=== PATIENT | female | born 1940 | race Caucasian/White ===

== ENCOUNTER 2016-11-12 11:09 | Outpatient (RCR) | payer MEDICARE, BC ==
[~2016-11-12] VITALS: Ht 170.2 cm; Wt 70.3 kg
[~2016-11-12 11:09] MED LIST: AC325T PO; ALPR.25T PO; ALPR.5T PO; ASP81TEC PO; ATR20T PO; CALC-20 PO; CARV12.52 PO; CEFU250T11 PO; DABI150C2 PO; DILT240C PO; DILT360C26 PO; ERGO400C PO; LORA10CA PO; MAGN400C PO; MULT1CAP27 PO; NITR-65 PO; OMEG-59 PO; ONDA-42 SL; OXYC-12 PO; PNT40TEC PO; PRX20T PO
== END 2017-02-10 | disposition home or self-care (01) ==
LOC: DSME 11:09
PROVIDERS: ATTEND Internal Medicine
DX: E11.65 Type 2 diabetes mellitus with hyperglycemia (principal); I10 Essential (primary) hypertension

== ENCOUNTER → 2016-11-15 | Outpatient (CLI) | payer MEDICARE, BC ==
--- NOTE | 2016-11-20 08:27 | ECHOCARDIOGRAPHY REPORT ---
PROCEDURE PHYSICIAN: SAIRA BUSTOS DATE OF PROCEDURE: 11/15/2016 TWO DIMENSIONAL ECHOCARDIOGRAM REPORT PRIMARY PHYSICIAN: Dr. Berger OTHER PHYSICIAN: Dr. Bustos REFERRING PHYSICIAN: ORDERING PHYSICIAN: Donna Art APRN INDICATION FOR THE PROCEDURE: 1. Coronary artery disease. 2. Hypertension. 3. Tricuspid regurgitation. MEASUREMENTS DERIVED VALUES LV DIAMETER (LAX) NORMALS NORMALS Diastolic 4.7 (3.6-5.2) Eject. Fract. (60%+/-6%) Systolic (2.3-3.9) Diastolic Vol. % Shortening (0.22-0.42) Systolic Vol. Aortic Root 3.5 IVS THICKNESS Diastolic 1.1 (0.6-1.1) LVPW THICKNESS Diastolic 0.8 (0.6-1.1) LA DIAMETER Systolic 4.1 (2.1-3.7) DESCRIPTION: Two-dimensional echocardiography shows normal global left ventricular systolic function with regional wall motion. Aortic, mitral and tricuspid valve leaflets show good leaflet excursion. There is no significant pericardial effusion. Doppler imaging shows trivial to mild mitral, tricuspid and aortic regurgitation. Aortic valve appears to be trileaflet. Pulmonary artery systolic pressure is estimated to be approximately 30 mmHg. There is no Doppler evidence of any significant valvular stenosis. There is no evidence of any significant intracardiac shunt on this transthoracic echocardiographic study. Inferior vena cava appears to be of normal size and exhibits inspiratory collapse. Echodense structures within the right heart are consistent with pacemaker lead/leads. CONCLUSIONS: 1. Normal global left ventricular systolic function with an ejection fraction of approximately 60%. 2. Trivial to mild mitral, tricuspid and aortic regurgitation. 3. No evidence of any significant valvular stenosis. 4. Pulmonary artery systolic pressure is estimated to be approximately 30 mmHg. Job ID: [id number] Dictated Date: 11/19/2016 15:12:30 Printing Technician Date: 11/20/2016 08:21:11 / iveth
== END ==
LOC: CARD 09:33
PROVIDERS: ATTEND Nurse Practitioner Family
DX: I25.10 Atherosclerotic heart disease of native coronary artery without angina pectoris (principal); I10 Essential (primary) hypertension; E78.4 Other hyperlipidemia; I36.1 Nonrheumatic tricuspid (valve) insufficiency
CPT/HCPCS: 93306

== ENCOUNTER → 2017-05-12 | Outpatient (CLI) | payer MEDICARE, BC ==
--- NOTE | 2017-05-12 18:03 | Diagnostic Imaging Report ---
INDICATION: Screening mammogram. COMPARISON: 05/03/16 Digital screening mammography was obtained with CAD and three-dimensional tomosynthesis. The current study was also evaluated with a Computer Aided Detection (CAD) system. FINDINGS: Scattered fibroglandular densities are present. There is no mass or suspicious calcification. IMPRESSION: Stable screening mammogram. No malignancy. ACR BI-RADS Category 1: Negative. Result letter will be mailed to the patient. Note: At least 10% of breast cancer is not imaged by mammography. Dictated on workstation # [id number]
== END ==
LOC: RAD 12:51
PROVIDERS: ATTEND Nurse Practitioner
DX: Z12.31 Encounter for screening mammogram for malignant neoplasm of breast (principal)
CPT/HCPCS: 77067

== ENCOUNTER → 2017-09-24 | Outpatient (CLI) | payer MEDICARE, BC ==
--- NOTE | 2017-09-24 11:11 | Diagnostic Imaging Report ---
INDICATION: Back pain. TECHNIQUE: Three views of the lumbar spine were obtained. FINDINGS: There is slight anterolisthesis of L4 on L5 which appears to be on a degenerative basis. The vertebral body heights are well-maintained. There is some lower lumbar hypertrophic degenerative facet disease. There is no fracture or traumatic subluxation. IMPRESSION: Lower lumbar hypertrophic degenerative facet disease with some slight anterolisthesis of L4 on L5. Dictated by: Dictated on workstation # [id number]
--- NOTE | 2017-09-24 11:11 | Diagnostic Imaging Report ---
INDICATION: Back pain. FINDINGS: The sacroiliac joints are unremarkable. There is no sclerosis or lysis. There is no fracture. IMPRESSION: Unremarkable bilateral SI joints. Dictated by: Dictated on workstation # [id number]
== END ==
LOC: RAD 10:37
PROVIDERS: ATTEND Internal Medicine
DX: M47.816 Spondylosis without myelopathy or radiculopathy, lumbar region (principal)
CPT/HCPCS: 72100; 72202

== ENCOUNTER → 2018-01-01 | Outpatient (CLI) | payer MEDICARE, BC ==
[~2018-01-01] MED LIST changes: +CATHETER FLUSH 10 ML SYR IV PRN; +REGADENOSON 0.4 MG/5 ML SYR (LEXISCAN) IV ONE
[2018-01-01 08:49] VITALS: BP 123/74
[2018-01-01 08:54] VITALS: BP 130/79
--- NOTE | 2018-01-01 14:05 | STRESS TEST ---
DATE OF SERVICE: 01/01/2018 RESTING AND POST REGADENOSON TECHNETIUM-99M TETROFOSMIN SPECT CT IMAGING ORDERING PHYSICIAN: Anel Bustos MD PRIMARY CARE PHYSICIAN: Dr. Berger. CLINICAL DIAGNOSIS: Coronary artery disease. Baseline images were carried out after injection of 10.74 mCi of technetium-99m tetrofosmin. This was followed by 0.4 mg of regadenoson and 30.5 mCi of technetium-99m tetrofosmin for stress imaging. The electrocardiogram showed atrial fibrillation throughout the study. Ventricular rate was well controlled. Occasional isolated premature ventricular contractions were seen. There was nonspecific ST and T-wave abnormality throughout the study. The patient had mild nonspecific discomfort following regadenoson infusion, which resolved in a few minutes. Review of images at rest and following stress does not indicate any significant perfusion defects consistent with significant myocardial ischemia or infarction. Gated images show normal global left ventricular systolic function with normal regional wall motion. Left ventricular ejection fraction is calculated to be 61%. Left ventricular end diastolic volume is 77 mL. TID is absent (0.97). CONCLUSIONS: 1. No evidence of significant myocardial ischemia or infarction on this study. 2. Normal regional wall motion. 3. Normal global left ventricular systolic function with a calculated ejection fraction of 61%. Job ID: [id number] DocumentID: [id number] Dictated Date: 01/01/2018 11:24:27 Can Line Examiner Date: 01/01/2018 14:04:45 Dictated By: ANEL BUSTOS MD, MA, FACP, FACC,
== END ==
LOC: CARD 07:15
PROVIDERS: ATTEND Internal Medicine Cardiovascular Disease
DX: I25.10 Atherosclerotic heart disease of native coronary artery without angina pectoris (principal); I10 Essential (primary) hypertension; E78.4 Other hyperlipidemia; R73.01 Impaired fasting glucose; R25.8 Other abnormal involuntary movements; I49.5 Sick sinus syndrome; Z95.0 Presence of cardiac pacemaker
CPT/HCPCS: 78452; 93017

== ENCOUNTER → 2018-03-02 | Outpatient (CLI) | payer MEDICARE, BC ==
[~2018-03-02] MED LIST changes: -CATHETER FLUSH 10 ML SYR IV PRN; -REGADENOSON 0.4 MG/5 ML SYR (LEXISCAN) IV ONE
--- NOTE | 2018-03-02 16:14 | Diagnostic Imaging Report ---
INDICATION: Right wrist pain. FINDINGS: Three views of the right wrist show no fracture, dislocation, or other acute abnormality. IMPRESSION: Negative right wrist. Dictated by: Dictated on workstation # [id number]
== END ==
LOC: RAD 15:48
PROVIDERS: ATTEND Internal Medicine
DX: M25.531 Pain in right wrist (principal)
CPT/HCPCS: 73110

== ENCOUNTER → 2018-09-16 | Outpatient (CLI) | payer MEDICARE, BC ==
--- NOTE | 2018-09-16 15:58 | Diagnostic Imaging Report ---
INDICATION: Cough and congestion. Difficulty breathing. COMPARISON: 11/15/2013. FINDINGS: Frontal and lateral radiographic views of the chest were obtained and show normal cardiac silhouette and pulmonary vasculature. Left-sided single lead pacemaker is noted. Evaluation of the lung tierney suggests 3.4 x 2.2 cm mass-like opacity projecting over the left heart border in the left lower lung. Right lung is clear. There is no large effusion or pneumothorax on either side. Cardiac silhouette and pulmonary vasculature are within normal limits. IMPRESSION: 1. Mass-like opacity projecting over the left lower lung field. Correlation with CT chest is recommended. Dictated by: Dictated on workstation # [id number]
== END ==
LOC: RAD 15:19
PROVIDERS: ATTEND Physician Assistant
DX: J40 Bronchitis, not specified as acute or chronic (principal)
CPT/HCPCS: 71046

== ENCOUNTER → 2018-09-18 | Outpatient (CLI) | payer MEDICARE, BC ==
[~2018-09-18] MED LIST changes: +IOHEXOL 350 MG/ML 100 ML (OMNIPAQUE 350) VIAL IV ONE; +NS 100 ML (IVPB) BAG IV ONE; +RECEIVED CONTRAST (Hold Metformin) IV SCH
[2018-09-18 10:59] LABS: BUN/CREATININE RATIO 19; CALCIUM 10.1 MG/DL (8.5-10.1); CARBON DIOXIDE 26 MMOL/L (21-32); CHLORIDE 103 MMOL/L (98-107); CREATININE SERUM 0.84 MG/DL (0.60-1.30); GFR ESTIMATED > 60; GLUCOSE 105 MG/DL (70-105); POTASSIUM 3.8 MMOL/L (3.6-5.0); SODIUM 140 MMOL/L (135-145)
--- NOTE | 2018-09-18 11:43 | Diagnostic Imaging Report ---
PROCEDURE: CT chest with contrast only. TECHNIQUE: Multiple contiguous axial images were obtained through the chest after administration of intravenous contrast. INDICATION: Cough and recent pneumonia. Patient had recent abnormal chest radiograph demonstrating a possible mass in the left base. Study is performed for further evaluation. COMPARISON: Correlation is made with chest radiograph from 09/16/2018. FINDINGS: Left chest wall cardiac pacemaker is in place. No axillary lymphadenopathy is seen. There are several mildly prominent lymph nodes in the mediastinum, nonspecific. Precarinal node measures 1.6 x 1.3 cm. There are some prominent nodes in the AP window. A conglomerate of nodes measures approximately 2.7 x 1.8 cm. No hilar lymphadenopathy is seen. No pericardial or pleural fluid is identified. Parenchymal evaluation does show central airways to be patent. There is some atelectasis in the lingula which may account for a portion of the density noted on recent chest x-ray. No mass lesion is identified. The remainder of the lung tierney are clear apart from some micronodules in the right middle lobe measuring approximately 3-4 mm. There is calcified granuloma in the right middle lobe as well. Tiny subpleural micronodule right lower lobe measures 4 mm. Micronodule left lower lobe posteriorly subpleural location measures 3 mm. Upper abdomen is unremarkable. IMPRESSION: 1. No evidence of a discrete mass to account for the density noted on chest x-ray. There is some mild subsegmental atelectasis in the lingula, likely accounting for the chest x-ray density. There are several micronodules present bilaterally, nonspecific approximately 3-4 mm in size. In addition, there appears to be some prominent lymph nodes in the mediastinum, indeterminate. These could potentially be reactive but other etiologies cannot be entirely excluded. Followup CT chest in 4-6 months recommended to confirm stability. Dictated by: Dictated on workstation # [id number]
== END ==
LOC: RAD 10:35
PROVIDERS: ATTEND Physician Assistant
DX: J98.4 Other disorders of lung (principal); R91.8 Other nonspecific abnormal finding of lung field; J18.9 Pneumonia, unspecified organism; J98.11 Atelectasis
CPT/HCPCS: 36415; 71260; 80048

== ENCOUNTER → 2019-05-17 | Outpatient (CLI) | payer MEDICARE, BC ==
[~2019-05-17] MED LIST changes: -IOHEXOL 350 MG/ML 100 ML (OMNIPAQUE 350) VIAL IV ONE; -NS 100 ML (IVPB) BAG IV ONE; -RECEIVED CONTRAST (Hold Metformin) IV SCH
--- NOTE | 2019-05-17 22:24 | Diagnostic Imaging Report ---
INDICATION: Screening. The current study was also evaluated with a Computer Aided Detection (CAD) system. 3-D Tomographic imaging was also performed. Comparison is made with prior examination 05/14/2018, 05/12/2017 and 05/03/2016. FINDINGS: The fibroglandular tissue is heterogeneously dense bilaterally. There are benign-type calcifications and vascular calcifications. There is no dominant mass, spiculated lesion or suspicious calcification identified. Skin, nipples and axillae are unremarkable. IMPRESSION: ACR BI-RADS Category 2: Benign findings. Result letter will be mailed to the patient. Note: At least 10% of breast cancer is not imaged by mammography. Dictated by: Dictated on workstation # [id number]
== END ==
LOC: RAD 10:19
PROVIDERS: ATTEND Physician Assistant
DX: Z12.31 Encounter for screening mammogram for malignant neoplasm of breast (principal)
CPT/HCPCS: 77067

== ENCOUNTER 2019-06-28 12:59 | Outpatient (CLI) | payer MEDICARE, BC | END 2019-06-28 13:58 | disposition home or self-care (01) | LOC: SLEEP 12:59 | PROVIDERS: ATTEND Nurse Practitioner | DX: G47.33 Obstructive sleep apnea (adult) (pediatric) (principal) ==

== ENCOUNTER → 2020-04-27 | Outpatient (CLI) | payer MEDICARE, BC ==
[~2020-04-27] MED LIST changes: +CATHETER FLUSH 10 ML SYR IV PRN; +HOLD METFORMIN - RECEIVED CONTRAST 20 ML VIAL IV SCH; +IOHEXOL 350 MG/ML 100 ML (OMNIPAQUE 350) VIAL IV ONE; +NS 100 ML (IVPB) BAG IV ONE
[2020-04-27 13:20] LABS: BUN/CREATININE RATIO 24; CALCIUM 9.9 MG/DL (8.5-10.1); CARBON DIOXIDE 24 MMOL/L (21-32); CHLORIDE 103 MMOL/L (98-107); CREATININE SERUM 0.88 MG/DL (0.60-1.30); GFR ESTIMATED > 60; GLUCOSE 99 MG/DL (70-105); POTASSIUM 4.1 MMOL/L (3.6-5.0); SODIUM 140 MMOL/L (135-145)
--- NOTE | 2020-04-27 15:57 | Diagnostic Imaging Report ---
EXAMINATION: CT angiography of the chest. TECHNIQUE: Contrast enhanced thin section helical images were obtained through the chest with intravenous contrast timed for the optimal opacification of the arterial structures per CTA protocol. Post-processing, reconstructions and interpretation of angiographic images of the vessels was performed. 3D MIP reconstructions were performed and reviewed. All CT scans use one or more of the following dose optimizing techniques: automated exposure control, MA and/or KvP adjustment based on a patient size and exam type, or iterative reconstruction. HISTORY: Aortic aneurysm COMPARISON: 09/18/2018 FINDINGS: The aortic root measures 4.5 x 4.2 cm. The sinotubular junction measures 2.9 cm. The ascending aorta measures 3.9 cm in its maximal dimension. Both ventricles are dilated but the right atrium and ventricle are fairly severely dilated. Pulmonary artery is dilated. Pacemaker is present. No axillary, supraclavicular lymphadenopathy is present. Mildly enlarged mediastinal lymph nodes are stable from prior exam. Lungs are clear without edema or pneumonia. No pleural effusion or pneumothorax. Limited views of the upper abdomen show pneumobilia and renal cysts. No suspicious osseus lesions are seen. IMPRESSION: 1. Dilated aorta measuring up to 4.5 cm in the root. The aorta above the sinotubular junction is not dilated. 2. Markedly dilated right atrium and right ventricle with mildly dilated left atrium and left ventricle. Dictated by: Dictated on workstation # [id number]
== END ==
LOC: RAD 12:24
PROVIDERS: ATTEND Nurse Practitioner Family
DX: I71.2 Thoracic aortic aneurysm, without rupture (principal)
CPT/HCPCS: 36415; 71275; 80048

== ENCOUNTER 2020-05-11 22:50 | Emergency (ER) | payer MEDICARE, BC ==
[~2020-05-11] VITALS: Ht 170 cm; Wt 68.3 kg
[~2020-05-11 22:50] MED LIST changes: -CATHETER FLUSH 10 ML SYR IV PRN; -HOLD METFORMIN - RECEIVED CONTRAST 20 ML VIAL IV SCH; -IOHEXOL 350 MG/ML 100 ML (OMNIPAQUE 350) VIAL IV ONE; -NS 100 ML (IVPB) BAG IV ONE
[2020-05-11] MEDS ORDERED: FURO40TA4 (23:13)
[2020-05-11] MEDS ORDERED: DIGO250T3 (23:13)
[2020-05-11] MEDS ORDERED: DABI150C5 (23:13)
[2020-05-11] MEDS ORDERED: ESCI20TA45 (23:13)
[2020-05-11] MEDS ORDERED: FAMOTIDINE 20MG/2ML IV (PEPCID) IVP ONE (23:15)
[2020-05-11] MEDS ORDERED: ONDANSETRON 4 MG/2 ML (SDV) Z0FRAN IVP ONE (23:15)
[2020-05-11 23:32] LABS: COLOR,URINE YELLOW
[2020-05-11 23:33] LABS: BASOPHILS % (AUTO) 0 % (0-10); EOSINOPHILS % (AUTO) 1 % (0-10); HEMATOCRIT 42 % (35-52); HEMOGLOBIN 13.8 G/DL (11.5-16.0); LYMPHOCYTES # (AUTO) 2.4 X 10^3 (1.0-4.0); LYMPHOCYTES % (AUTO) 28 % (12-44); MEAN CORPUSCULAR HEMOGLOBIN 30 PG (25-34); MEAN CORPUSCULAR HGB CONC 33 G/DL (32-36); MEAN CORPUSCULAR VOLUME 90 FL (80-99); MEAN PLATELET VOLUME 9.5 FL (7.4-10.4); MONOCYTES # (AUTO) 0.5 X 10^3 (0.0-1.0); MONOCYTES % (AUTO) 6 % (0-12); NEUTROPHILS # (AUTO) 5.7 X 10^3 (1.8-7.8); NEUTROPHILS % (AUTO) 66 % (42-75); PLATELET COUNT 214 10^3/uL (130-400); WHITE BLOOD COUNT 8.7 10^3/uL (4.3-11.0)
[2020-05-11 23:33] LABS: BILIRUBIN,URINE NEGATIVE (NEGATIVE); CLARITY,URINE CLEAR; GLUCOSE, URINE (UA) NEGATIVE (NEGATIVE); KETONES,URINE NEGATIVE (NEGATIVE); LEUKOCYTE ESTERASE ,URINE 2+ (NEGATIVE); NITRITE,URINE NEGATIVE (NEGATIVE); PH,URINE 6.5 (5-9); PROTEIN,URINE NEGATIVE (NEGATIVE)
[2020-05-11 23:34] LABS: BACTERIA,URINE TRACE /HPF; SQUAMOUS EPITHELIAL CELL,UR 0-2 /HPF
[2020-05-11 23:55] LABS: ALANINE AMINOTRANSFERASE 45 U/L (0-55); ALBUMIN 4.5 GM/DL (3.2-4.5); ALKALINE PHOSPHATASE 68 U/L (40-136); BILIRUBIN,TOTAL 0.4 MG/DL (0.1-1.0); BUN/CREATININE RATIO 17; CALCIUM 9.9 MG/DL (8.5-10.1); CARBON DIOXIDE 27 MMOL/L (21-32); CHLORIDE 102 MMOL/L (98-107); CREATININE SERUM 0.89 MG/DL (0.60-1.30); GFR ESTIMATED > 60; GLUCOSE 87 MG/DL (70-105); LIPASE 20 U/L (8-78); MAGNESIUM 2.1 MG/DL (1.6-2.4); POTASSIUM 3.5 MMOL/L (3.6-5.0); SODIUM 140 MMOL/L (135-145); TOTAL PROTEIN 7.9 GM/DL (6.4-8.2)
--- NOTE | 2020-05-11 23:55 | ED Cardiac General ---
History of Present Illness General Chief Complaint: Cardiac/General Problems Stated Complaint: AFIB N/V Nursing Triage Note: C/O IRREGULAR HR SINCE APPROX. 2129. ALSO REPORTS UPPER ABDOMINAL PAIN/NAUSEA SINCE 2129. REPORTS HX AFIB. Source: patient Exam Limitations: no limitations History of Present Illness Date Seen by Provider: May 11, 2020 Time Seen by Provider: 23:05 Initial Comments This 80-year-old woman with history of paroxysmal atrial fibrillation presents to the emergency room with complaints about irregular heart rhythm that she noticed between 21:00 and 22:00. She denies any chest pain. She has had some upper abdominal tenderness and pain and nausea and vomiting. She denies any cough, fever, or COVID exposures. She is noted to be in atrial fibrillation on the monitor. She has a pacemaker and is on multiple medications including diltiazem and digoxin. She is anticoagulated with Pradaxa. Allergies and Home Medications Allergies Coded Allergies: No Known Drug Allergies (Unverified , 08/03/12) Home Medications Alprazolam 0.25 Mg Tablet, 0.25 MG PO DAILY, (Reported) Alprazolam 0.5 Mg Tablet, 0.25 MG PO HS, (Reported) Atorvastatin 20 Mg Tablet, 1 EACH PO DAILY, (Reported) Calcium Carbonate/Vitamin D3 1 Each Tablet, 1 EACH PO BID, (Reported) Cholecalciferol 400 Unit Capsule, 1,000 UNIT PO DAILY, (Reported) Diltiazem Hcl 360 Mg Cap.sr.24h, 1 EACH PO BID, (Reported) Loratadine 10 Mg Capsule, 10 MG PO DAILY, (Reported) Magnesium Oxide 400 Mg Capsule, 400 MG PO DAILY, (Reported) Multivitamins 1 Each Capsule, 1 EACH PO DAILY, (Reported) Frost-3 Fatty Acids/Fish Oil 1 Each Capsule, 1,400 MG PO DAILY, (Reported) Pantoprazole Sodium 40 Mg Tablet.dr, 40 MG PO DAILY, (Reported) Paroxetine Hcl 20 Mg Tablet, 20 MG PO DAILY, (Reported) Patient Home Medication List Home Medication List Reviewed: Yes Review of Systems Review of Systems Constitutional: no symptoms reported EENTM: No Symptoms Reported Respiratory: No Symptoms Reported Cardiovascular: See HPI Gastrointestinal: See HPI Genitourinary: No Symptoms Reported Musculoskeletal: no symptoms reported Skin: no symptoms reported Psychiatric/Neurological: No Symptoms Reported Endocrine: No Symptoms Reported Hematologic/Lymphatic: No Symptoms Reported Past Jwdvrcg-[id number]-Kwgmsv Hx Past Med/Social Hx: Reviewed Nursing Past Med/Soc Hx Patient Social History Alcohol Use: Denies Use Recreational Drug Use: No Smoking Status: Never a Smoker 2nd Hand Smoke Exposure: No Recent Foreign Travel: No Contact w/Someone Who Travel: No Recent Infectious Disease Expo: No Recent Hopitalizations: No Physical Abuse: No Sexual Abuse: No Mistreated: No Fear: No Immunizations Up To Date Tetanus Booster (TDap): Unknown Date of Pneumonia Vaccine: Jun 22, 2011 Date of Influenza Vaccine: Aug 22, 2013 Seasonal Allergies Seasonal Allergies: No Past Medical History Surgeries: Yes (Total hysterectomy, appy, charan, ) Pacemaker Respiratory: No Cardiac: Yes (PACEMAKER) Atrial Fibrillation, High Cholesterol, Hypertension Neurological: No : No 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 oz. 72.919305oz; 23.00 BMI Method:Stated General Appearance: No Apparent Distress, WD/WN HEENT: PERRL/EOMI, Normal ENT Inspection Neck: Normal Inspection Respiratory: Chest Non Tender, Lungs Clear, Normal Breath Sounds, No Accessory Muscle Use, No Respiratory Distress Cardiovascular: Regular Rate, Rhythm, No Edema, No Gallop, No Murmur, Normal Peripheral Pulses Gastrointestinal: Normal Bowel Sounds, Soft, Tenderness (mild tenderness in the left upper quadrant) Extremity: Normal Inspection, Non Tender, No Calf Tenderness Neurologic/Psychiatric: Alert, Oriented x3, No Motor/Sensory Deficits, Normal Mood/Affect Skin: Normal Color, Warm/Dry Progress/Results/Core Measures Results/Orders Lab Results Laboratory Tests Test 05/11/20 23:12 05/11/20 23:15 Range/Units White Blood Count 8.7 4.3-11.0 10^3/uL Red Blood Count 4.68 4.35-5.85 10^6/uL Hemoglobin 13.8 11.5-16.0 G/DL Hematocrit 42 35-52 % Mean Corpuscular Volume 90 80-99 FL Mean Corpuscular Hemoglobin 30 25-34 PG Mean Corpuscular Hemoglobin Concent 33 32-36 G/DL Red Cell Distribution Width 15.0 H 10.0-14.5 % Platelet Count 214 130-400 10^3/uL Mean Platelet Volume 9.5 7.4-10.4 FL Neutrophils (%) (Auto) 66 42-75 % Lymphocytes (%) (Auto) 28 12-44 % Monocytes (%) (Auto) 6 0-12 % Eosinophils (%) (Auto) 1 0-10 % Basophils (%) (Auto) 0 0-10 % Neutrophils # (Auto) 5.7 1.8-7.8 X 10^3 Lymphocytes # (Auto) 2.4 1.0-4.0 X 10^3 Monocytes # (Auto) 0.5 0.0-1.0 X 10^3 Eosinophils # (Auto) 0.0 0.0-0.3 10^3/uL Basophils # (Auto) 0.0 0.0-0.1 10^3/uL Sodium Level 140 135-145 MMOL/L Potassium Level 3.5 L 3.6-5.0 MMOL/L Chloride Level 102 98-107 MMOL/L Carbon Dioxide Level 27 21-32 MMOL/L Anion Gap 11 5-14 MMOL/L Blood Urea Nitrogen 15 7-18 MG/DL Creatinine 0.89 0.60-1.30 MG/DL Estimat Glomerular Filtration Rate > 60 BUN/Creatinine Ratio 17 Glucose Level 87 70-105 MG/DL Calcium Level 9.9 8.5-10.1 MG/DL Corrected Calcium 9.5 8.5-10.1 MG/DL Magnesium Level 2.1 1.6-2.4 MG/DL Total Bilirubin 0.4 0.1-1.0 MG/DL Aspartate Amino Transf (AST/SGOT) 36 H 5-34 U/L Alanine Aminotransferase (ALT/SGPT) 45 0-55 U/L Alkaline Phosphatase 68 40-136 U/L Troponin I < 0.028 <0.028 NG/ML Total Protein 7.9 6.4-8.2 GM/DL Albumin 4.5 3.2-4.5 GM/DL Lipase 20 8-78 U/L Urine Color YELLOW Urine Clarity CLEAR Urine pH 6.5 5-9 Urine Specific Casey <=1.005 1.016-1.022 Urine Protein NEGATIVE NEGATIVE Urine Glucose (UA) NEGATIVE NEGATIVE Urine Ketones NEGATIVE NEGATIVE Urine Nitrite NEGATIVE NEGATIVE Urine Bilirubin NEGATIVE NEGATIVE Urine Urobilinogen 0.2 < = 1.0 MG/DL Urine Leukocyte Esterase 2+ H NEGATIVE Urine RBC (Auto) NEGATIVE NEGATIVE Urine RBC NONE /HPF Urine WBC 2-5 /HPF Urine Squamous Epithelial Cells 0-2 /HPF Urine Crystals NONE /LPF Urine Bacteria TRACE /HPF Urine Casts NONE /LPF Urine Mucus NEGATIVE /LPF Urine Culture Indicated NO Digoxin Level 0.82 0.80-2.00 NG/ML My Orders Orders - COLTON BENNETT MD Cbc With Automated Diff (05/11/20 23:10) Comprehensive Metabolic Panel (05/11/20 23:10) Lipase (05/11/20 23:10) Magnesium (05/11/20 23:10) Troponin I (05/11/20 23:10) Ua Culture If Indicated (05/11/20 23:10) Ed Iv/Invasive Line Start (05/11/20 23:10) Ekg Tracing (05/11/20 23:10) Monitor-Rhythm Ecg Trace Only (05/11/20 23:10) Ondansetron Injection (Zofran Injectio (05/11/20 23:15) Famotidine Injection (Pepcid Injection) (05/11/20 23:15) Digoxin (05/12/20 00:19) Medications Given in ED Current Medications Medications Dose Ordered Sig/Roya Route Start Time Stop Time Status Last Admin Dose Admin Famotidine 20 mg ONCE ONCE IVP 05/11/20 23:15 05/11/20 23:16 DC 05/11/20 23:16 20 MG Ondansetron HCl 8 mg ONCE ONCE IVP 05/11/20 23:15 05/11/20 23:16 DC 05/11/20 23:16 8 MG Vital Signs/I&O 05/11/20 05/12/20 23:04 00:35 Temp 36.4 36.5 Pulse 73 67 Resp 18 14 B/P (MAP) 185/95 (125) 140/77 (125) Pulse Ox 98 96 O2 Delivery Room Air Room Air Blood Pressure Mean: 125 Progress Progress Note : Progress Note Workup was unremarkable. Abdominal discomfort and nausea resolved with Zofran and Pepcid. She had no pain on repeat exam. Heart rate remained controlled. Patient has Raine anticoagulated and can safely follow up in the outpatient setting. Initial ECG Impression Date: May 11, 2020 Initial ECG Impression Time: 23:08 Initial ECG Rate: 65 Initial ECG Rhythm: A Fib/Flutter Departure Impression Primary Impression: Atrial fibrillation Qualified Codes: I48.0 - Paroxysmal atrial fibrillation Additional Impression: Nausea and vomiting Qualified Codes: R11.2 - Nausea with vomiting, unspecified Disposition: 01 HOME, SELF-CARE Condition: Improved Departure-Patient Inst. Decision time for Depature: 00:27 Referrals: PRABHJOT NEWSOME MD (PCP/Family) Primary Care Physician Patient Instructions: Atrial Fibrillation Add. Discharge Instructions: Continue your medications as prescribed. You may take Zofran (ondansetron) as previously directed for nausea and vomiting. Please call Dr. Bustos's office tomorrow for follow-up and explain your current situation in symptoms. Return to emergency room if you have worsening symptoms. Your urinalysis did not suggest any infection. A digoxin level was drawn and was pending at the time of your discharge. Please review that result with Dr. Bustos. All discharge instructions reviewed with patient and/or family. Voiced understanding. Copy Copies To 1: SAIRA BUSTOS MD FACP FAC CCDS Copies To 2: PRABHJOT NEWSOME MD, JOSHUA T MD May 11, 2020 23:55
[2020-05-12 00:35] VITALS: BP 140/77
== END 2020-05-12 00:37 | disposition home or self-care (01) ==
LOC: EDUNIT# 22:50 → ER 22:53
DX: I48.0 Paroxysmal atrial fibrillation (principal); R11.2 Nausea with vomiting, unspecified; I10 Essential (primary) hypertension; E78.00 Pure hypercholesterolemia, unspecified; K21.9 Gastro-esophageal reflux disease without esophagitis; F41.9 Anxiety disorder, unspecified; Z95.0 Presence of cardiac pacemaker; Z79.01 Long term (current) use of anticoagulants
CPT/HCPCS: 36415; 80053; 80162; 81000; 83690; 83735; 84484; 85025; 93005; 93041

== ENCOUNTER → 2020-12-15 | Outpatient (CLI) | payer MEDICARE, BC ==
[~2020-12-15] MED LIST changes: +DABI150C5; +DIGO250T3; +ESCI20TA39; +FURO40TA4
--- NOTE | 2020-12-15 08:59 | Diagnostic Imaging Report ---
PROCEDURE: CT abdomen and pelvis without contrast. TECHNIQUE: Multiple contiguous axial images were obtained through the abdomen and pelvis without the use of intravenous contrast. Auto Exposure Controls were utilized during the CT exam to meet ALARA standards for radiation dose reduction. INDICATION: Hematuria, history of nephrolithiasis. Compared with abdominal pelvic CT performed 07/2014. FINDINGS: There are no radiopaque kidney stones. There is no hydroureteronephrosis and there was no perinephric or periureteric edema. No opaque ureteral calculi are found. The unopacified urinary bladder appeared unremarkable. No perivesical edema. There is a minute amount of intrahepatic air along the central bile ducts decreased from prior presumed to the sequelae of previous biliary intervention. No identifiable liver mass. No bile duct dilatation. The gallbladder contracted. The adrenals, spleen and pancreas appeared unremarkable. Calcified atherosclerotic aorta is nonaneurysmal. There is no ascites, abscess, hematoma or acute fluid collection. There is diverticulosis of the sigmoid colon without features of acute diverticulitis. There is no ileus. There is no free air. The lung bases and osseous structures nonacute. IMPRESSION: 1. Unobstructed nonfocal urinary tracts. 2. Noninflamed diverticulosis. 3. No obstructive features, inflammatory process or acute abnormalities identified. Dictated by: Dictated on workstation # [id number]
== END ==
LOC: RAD 08:05
PROVIDERS: ATTEND Urology
DX: R31.0 Gross hematuria (principal); K57.30 Diverticulosis of large intestine without perforation or abscess without bleeding; Z87.442 Personal history of urinary calculi
CPT/HCPCS: 74176

== ENCOUNTER 2020-12-21 13:32 | Outpatient (RCR) | payer MEDICARE, BC | END 2021-01-16 | disposition home or self-care (01) | PROVIDERS: ATTEND Nurse Practitioner | DX: M70.62 Trochanteric bursitis, left hip (principal); M70.61 Trochanteric bursitis, right hip; I10 Essential (primary) hypertension ==

== ENCOUNTER → 2021-06-27 | Outpatient (CLI) | payer MEDICARE, BC ==
[~2021-06-27] MED LIST changes: +CATHETER FLUSH 10 ML SYR IV PRN; +HOLD METFORMIN - RECEIVED CONTRAST 20 ML VIAL IV SCH; +IOHEXOL 350 MG/ML 100 ML (OMNIPAQUE 350) VIAL IV ONE; +NS 100 ML (IVPB) BAG IV ONE
[2021-06-27 14:22] LABS: CREATININE SERUM 0.8 MG/DL (0.60-1.30)
--- NOTE | 2021-06-27 15:58 | Diagnostic Imaging Report ---
EXAMINATION: CT abdomen and pelvis with and without intravenous contrast. TECHNIQUE: Precontrast acquisitions were acquired through the abdomen and pelvis. Multiple contiguous axial images were obtained through the abdomen and pelvis after the administration of intravenous contrast. All CT scans use one or more of the following dose optimizing techniques: automated exposure control, MA and/or KvP adjustment based on patient size and exam type or iterative reconstruction. HISTORY: Recurrent hematuria. COMPARISON: 12/15/2020. FINDINGS: The heart is mildly prominent. Minimal dependent atelectasis is seen in the lung bases. No evidence of hydronephrosis or renal calculi. No solid renal masses. Benign subcentimeter cortical cysts are seen in the kidneys. No perinephric fat stranding is seen. The urinary bladder is mildly distended. There is mild bladder wall thickening. There is trace pneumobilia, similar to the prior exam. The gallbladder is surgically absent. No focal hepatic lesion is seen. The portal vein is patent. The spleen, pancreas, and adrenal glands have a normal appearance. There is no pathologically enlarged mesenteric or retroperitoneal adenopathy. The bowel loops are nondilated. Diverticuli are seen in the descending and sigmoid colon without evidence of acute diverticulitis. There is no free fluid or free air. No acute osseous abnormalities. There is calcified aortic and iliac atherosclerotic plaque without aneurysm. There is no free air, loculated collection, or adenopathy in the pelvis. IMPRESSION: 1. No evidence of renal calculi or hydronephrosis. No solid renal mass. 2. Mild bladder wall thickening, which can be seen with cystitis. Recommend correlation with UA. 3. Trace pneumobilia, similar to the prior exam. The gallbladder surgically absent. 4. Diverticulosis of the descending and sigmoid colon without evidence of acute diverticulitis. Dictated by: Dictated on workstation # [id number]
== END ==
LOC: RAD 14:45
PROVIDERS: ATTEND Urology
DX: R31.0 Gross hematuria (principal); K57.30 Diverticulosis of large intestine without perforation or abscess without bleeding
CPT/HCPCS: 36415; 74178; 82565; 84520

== ENCOUNTER 2021-07-06 06:41 | Outpatient (CLI) | payer MEDICARE, BC ==
[~2021-07-06] VITALS: Ht 170.2 cm; Wt 68.2 kg
[~2021-07-06 06:41] MED LIST changes: -CATHETER FLUSH 10 ML SYR IV PRN; -DABI150C5; +DABI150C5 PO; -DIGO250T3; +DIGO250T3 PO; -ESCI20TA39; +ESCI20TA39 PO; -FURO40TA4; +FURO40TA4 PO; -HOLD METFORMIN - RECEIVED CONTRAST 20 ML VIAL IV SCH; -IOHEXOL 350 MG/ML 100 ML (OMNIPAQUE 350) VIAL IV ONE; -NS 100 ML (IVPB) BAG IV ONE
[2021-07-06] MEDS ORDERED: MULT-567 PO (13:45)
[2021-07-06] MEDS ORDERED: CALC600T91 PO (13:45)
[2021-07-06] MEDS ORDERED: LORA10TA7 PO (13:45)
[2021-07-06] MEDS ORDERED: OMEG1CAP57 PO (13:45)
[2021-07-06] MEDS ORDERED: DILT300C52 PO (13:45)
[2021-07-06] MEDS ORDERED: MAGN250T35 PO (13:45)
[2021-07-06] MEDS ORDERED: PANT40TA52 PO (13:45)
[2021-07-06] MEDS ORDERED: CHOL-34 PO (13:45)
[2021-07-06] MEDS ORDERED: VITA1TAB33 PO (13:49)
[2021-07-06] MEDS ORDERED: ASCO500T17 PO (13:49)
[2021-07-06] MEDS ORDERED: GABA300C PO (13:49)
[2021-07-06] MEDS ORDERED: FLAX10004 PO (13:49)
[2021-07-06] MEDS ORDERED: ZINC50TA11 PO (13:49)
[2021-07-06] MEDS ORDERED: MV-M1TAB57 PO (13:49)
[2021-07-06] MEDS ORDERED: POTA-51 PO (13:49)
[2021-07-06] MEDS ORDERED: CRAN500T3 PO (13:49)
== END 2021-07-06 13:58 | disposition home or self-care (01) ==
LOC: PREOP 06:41
PROVIDERS: ATTEND Urology
DX: Z01.818 Encounter for other preprocedural examination (principal)

== ENCOUNTER 2021-07-11 06:11 | Day surgery (SDC) | payer MEDICARE, BC ==
[~2021-07-11] VITALS: Ht 170 cm; Wt 68.2 kg
[2021-07-11] VITALS (10 sets, daily range): BP systolic 106–139; BP diastolic 64–93
[~2021-07-11 06:11] MED LIST changes: +ASCO500T17 PO; +CALC600T91 PO; +CHOL-34 PO; +CRAN500T3 PO; +DILT300C52 PO; +FLAX10004 PO; +GABA300C PO; +LORA10TA7 PO; +MAGN250T35 PO; +MULT-567 PO; +MV-M1TAB57 PO; +OMEG1CAP57 PO; +PANT40TA52 PO; +POTA-51 PO; +VITA1TAB33 PO; +ZINC50TA11 PO
[2021-07-11] MEDS ORDERED: cefTRIAXone 1,000 MG VIAL ONE (06:39)
[2021-07-11] MEDS ORDERED: WATER (STERILE) FOR INJECTION 10 ML ONE (06:39)
[2021-07-11] MEDS ORDERED: proPOfol 200 MG/20 ML (DIPRIVAN) VIAL IV ONE (06:56)
[2021-07-11] MEDS ORDERED: LIDOCAINE PF 2% 5 ML (XYLOCAINE) VIAL ONE (06:56)
[2021-07-11] MEDS ORDERED: ONDANSETRON 4 MG/2 ML (SDV) Z0FRAN ONE (06:56)
[2021-07-11] MEDS ORDERED: fentaNYL INJ 100 MCG/2 ML AMP ONE (06:56)
[2021-07-11] MEDS ORDERED: LACTATED RINGERS 1,000 ML IV PRN (07:00)
[2021-07-11] MEDS ORDERED: cefTRIAXone 1,000 MG in WATER (STERILE) FOR INJECTION 10 ML IV ONE (07:00)
--- NOTE | 2021-07-11 07:27 | Progress Note-Pre Operative ---
Pre-Operative Progress Note H&P Reviewed The H&P was reviewed, patient examined and no changes noted. Date Seen by Provider: Jul 11, 2021 Time Seen by Provider: 07: Date H&P Reviewed: Jul 11, 2021 Time H&P Reviewed: 07:26 Pre-Operative Diagnosis: BLADDER TUMORS (MEDIUM) CONNER ARANA MD Jul 11, 2021 07:27
--- NOTE | 2021-07-11 08:04 | Progress Note-Post Operative ---
Post-Operative Progess Note Surgeon (s)/Service Center Assistant (s) Surgeon CONNER ARANA MD Service Center Assistant: NONE Pre-Operative Diagnosis BLADDER TUMORS (MEDIUM) Post-Operative Diagnosis SAME Procedure & Operative Findings Date of Procedure 07/11/21 Procedure Performed/Findings TURBT Anesthesia Type GENERAL Estimated Blood Loss Estimated blood loss (mL): NEGLIGIBLE Specimens/Packing Specimens Removed BLADDER TUMOR AND BASE Packing: NONE CONNER ARANA MD Jul 11, 2021 08:03
[2021-07-11] MEDS ORDERED: SEVOFLURANE (ULTANE) 15 ML INHAL SOLN ONE (08:05)
--- NOTE | 2021-07-11 08:05 | Discharge Inst-Urology ---
Discharge Inst-Urology Reconcile Patient Problems Problems Reviewed?: Yes Final Diagnosis BLADDER TUMOR Patient Instructions/Follow Up Plan/Assessment/Instructions Please make appointment to been seen in office in 2 weeks. In 72 hours, if no bleeding, may resume Pradaxa, hold if bleeding Increase oral fluids for 48 hours and then as needed. Diet and Activity as tolerated. If questions or concerns contact your physician Or seek help at emergency department. CONNER ARANA MD Jul 11, 2021 08:05
--- NOTE | 2021-07-11 14:13 | OPERATIVE REPORT ---
DATE OF SERVICE: 07/11/2021 PREOPERATIVE DIAGNOSIS: Bladder lesions, possible CA of the bladder medium sized. POSTOPERATIVE DIAGNOSIS: Bladder lesions, possible CA of the bladder medium sized. OPERATION PERFORMED: Transurethral resection of bladder tumors. SURGEON: Jacinto Arana MD ANESTHESIA: General. COMPLICATIONS: None. DESCRIPTION OF PROCEDURE: Under satisfactory general anesthesia, the patient in lithotomy position, genitalia were prepped and draped in the usual sterile fashion. Resectoscope was introduced in the bladder and again visualized the only lesion in the bladder, which was the floor and the trigone looking papillary type medium size. They were all resected base cauterized. Hemostasis was complete. The chips were evacuated and sent to pathology. Inspection again revealed no further lesions and no bleeding. Ureteric orifices were intact with clear effluxes bilaterally. Bladder was evacuated. The resectoscope was removed. The patient tolerated the procedure and anesthesia well and was sent to recovery room in stable condition. ESTIMATED BLOOD LOSS: Negligible. Job ID: [id number] DocumentID: [id number] Dictated Date: 07/11/2021 08:09:22 Food Safety Director Date: 07/11/2021 14:12:57 Dictated By: JACINTO ARANA MD
--- NOTE | 2021-07-17 08:49 | Anesthesia-General Post-Op ---
General Significant Intra-Op Events Notes late entry 07/11@0900 Patient Condition Mental Status/LOC: Same as Preop Cardiovascular: Satisfactory Nausea/Vomiting: Absent Respiratory: Satisfactory Pain: Controlled Complications: Absent Post Op Complications Complications None Follow Up Care/Instructions Patient Instructions None needed. Anesthesia/Patient Condition Patient Condition Patient is doing well, no complaints, stable vital signs, no apparent adverse anesthesia problems. No complications reported per nursing. CHERIE ADAMES CRNA Jul 17, 2021 08:49
== END 2021-07-11 10:15 ==
LOC: SDC 06:11
PROVIDERS: ATTEND Urology
DX: N30.20 Other chronic cystitis without hematuria (principal); N32.89 Other specified disorders of bladder; E11.65 Type 2 diabetes mellitus with hyperglycemia; E78.5 Hyperlipidemia, unspecified; J38.3 Other diseases of vocal cords; K21.9 Gastro-esophageal reflux disease without esophagitis; I48.20 Chronic atrial fibrillation, unspecified; I10 Essential (primary) hypertension; I48.91 Unspecified atrial fibrillation; I49.5 Sick sinus syndrome; I25.10 Atherosclerotic heart disease of native coronary artery without angina pectoris; I08.3 Combined rheumatic disorders of mitral, aortic and tricuspid valves; I65.23 Occlusion and stenosis of bilateral carotid arteries; I49.8 Other specified cardiac arrhythmias; M79.89 Other specified soft tissue disorders; E87.6 Hypokalemia; G25.81 Restless legs syndrome; F41.9 Anxiety disorder, unspecified; F32.9 Major depressive disorder, single episode, unspecified; Z90.710 Acquired absence of both cervix and uterus; Z86.73 Personal history of transient ischemic attack (TIA), and cerebral infarction without residual deficits; Z79.899 Other long term (current) drug therapy; Z95.0 Presence of cardiac pacemaker; Z79.01 Long term (current) use of anticoagulants
CPT/HCPCS: 87081

== ENCOUNTER → 2021-07-12 | Outpatient (CLI) | payer MEDICARE, BC ==
--- NOTE | 2021-07-12 13:19 | Diagnostic Imaging Report ---
PROCEDURE: US Venous Lower Ext Ryan. TECHNIQUE: Multiple real-time grayscale images were obtained over the lower extremities in various projections, bilaterally. Additional duplex Doppler and color Doppler images were also obtained. INDICATION: NONRHEUMATIC AORTIC VALUE INS EXAMINATION: Bilateral lower extremity venous Doppler 07/12/2021 TECHNIQUE: Waveform and spectral analysis of the lower extremity venous structures. FINDINGS: There is no evidence for deep vein thrombosis with normal compressibility, augmentation and spontaneity of all visualized venous structures. IMPRESSION: 1. No evidence for deep vein thrombosis. Dictated by: Dictated on workstation # [id number]
== END ==
LOC: CARD 12:00
PROVIDERS: ATTEND Nurse Practitioner Family
DX: M79.89 Other specified soft tissue disorders (principal); I35.1 Nonrheumatic aortic (valve) insufficiency
CPT/HCPCS: 93306; 93970

== ENCOUNTER → 2022-03-08 | Outpatient (CLI) | payer MEDICARE, BC | LOC: CARD 11:00 | PROVIDERS: ATTEND Internal Medicine Cardiovascular Disease | DX: I08.3 Combined rheumatic disorders of mitral, aortic and tricuspid valves (principal) | CPT/HCPCS: 93306 ==

== ENCOUNTER → 2022-07-10 | Outpatient (CLI) | payer MEDICARE, BC ==
[~2022-07-10] MED LIST changes: -CRAN500T3 PO; +CRAN500T4 PO
--- NOTE | 2022-07-10 11:56 | Diagnostic Imaging Report ---
Indication: Routine screening. Comparison is made with prior mammogram from 05/17/2019 and 05/14/2018. 2-D and 3-D bilateral screening mammography was performed with CAD. CAD is utilized. The current study was also evaluated with a Computer Aided Detection (CAD) system. Both breasts are heterogeneously dense, limiting the sensitivity of mammography. Benign parenchymal and vascular calcifications are again noted bilaterally. The overall parenchymal pattern appears to be stable. No spiculated mass or malignant-appearing microcalcifications are identified. The axillae are unremarkable. IMPRESSION: BI-RADS Category 2 No mammographic features suspicious for malignancy are identified. ACR BI-RADS Category 2: Benign findings. Result letter will be mailed to the patient. Note: At least 10% of breast cancer is not imaged by mammography. Dictated by: Dictated on workstation # [id number]
== END ==
LOC: RAD 10:39
PROVIDERS: ATTEND Nurse Practitioner Family
DX: Z12.31 Encounter for screening mammogram for malignant neoplasm of breast (principal)
CPT/HCPCS: 77063; 77067

== ENCOUNTER 2022-07-22 05:32 | Outpatient (CLI) | payer MEDICARE, BC ==
[~2022-07-22] VITALS: Ht 170.2 cm; Wt 68.2 kg
[2022-07-24] MEDS ORDERED: LEVO5TAB28 PO (16:26)
[2022-07-24] MEDS ORDERED: APIX5TAB PO (16:26)
== END 2022-07-25 12:53 | disposition home or self-care (01) ==
LOC: PREOP 05:32
PROVIDERS: ATTEND Orthopaedic Surgery
DX: Z01.818 Encounter for other preprocedural examination (principal)

== ENCOUNTER 2022-07-31 09:28 | Day surgery (SDC) | payer MEDICARE, BC ==
[~2022-07-31] VITALS: Ht 170 cm; Wt 68.2 kg
[2022-07-31] VITALS (8 sets, daily range): BP systolic 127–157; BP diastolic 68–93
[~2022-07-31 09:28] MED LIST changes: -CATHETER FLUSH 10 ML SYR IV PRN; -HOLD METFORMIN - RECEIVED CONTRAST 20 ML VIAL IV SCH; -IOHEXOL 350 MG/ML 100 ML (OMNIPAQUE 350) VIAL IV ONE; -NS 100 ML (IVPB) BAG IV ONE
[2022-07-31] MEDS ORDERED: IOHEXOL 350 MG/ML 100 ML (OMNIPAQUE 350) VIAL IV ONE (09:30)
[2022-07-31] MEDS ORDERED: HOLD METFORMIN - RECEIVED CONTRAST 20 ML VIAL IV SCH (09:30)
[2022-07-31] MEDS ORDERED: NS 100 ML (IVPB) BAG IV ONE (09:30)
[2022-07-31] MEDS ORDERED: CATHETER FLUSH 10 ML SYR IV PRN (09:30)
[2022-07-31] MEDS ORDERED: ceFAZolin INJECTION 2,000 MG in NS (IVPB) 50 ML IV ONE (09:45)
[2022-07-31] MEDS ORDERED: LACTATED RINGERS 1,000 ML IV PRN (09:45)
[2022-07-31] MEDS ORDERED: morphine PF (DURAMORPH) 10 MG/10 ML AMP ONE (09:54)
[2022-07-31] MEDS ORDERED: BUPIVACAINE 0.25% 30 ML (SENSORCAINE) VIAL ONE (09:55)
[2022-07-31] MEDS ORDERED: fentaNYL INJ 100 MCG/2 ML AMP ONE (10:17)
--- NOTE | 2022-07-31 10:40 | Progress Note-Pre Operative ---
Pre-Operative Progress Note Date of Available H&P: Jul 23, 2022 Date H&P Reviewed: Jul 31, 2022 Time H&P Reviewed: 07:11 Changes from last HP none Pre-Operative Diagnosis: left medial and lateral meniscus tears and chondromalacia EMILY MADSEN MD Jul 31, 2022 10:40
--- NOTE | 2022-07-31 10:41 | Progress Note-Post Operative ---
Post-Operative Progess Note Surgeon (s)/Malware Analyst (s) Surgeon EMILY MADSEN MD Malware Analyst: Cosme Mcfarland Pre-Operative Diagnosis left medial and lateral meniscus tears and chondromalacia Post-Operative Diagnosis left medial and lateral meniscus tears and chondromalacia of the medial and lateral femoral condyles Procedure & Operative Findings Date of Procedure 07/31/22 Procedure Performed/Findings left knee arthroscopic partial medial and lateral meniscectomies and chondro plasty of the medial and lateral femoral condyles Anesthesia Type GETA Estimated Blood Loss Estimated blood loss (mL): minimal Specimens/Packing Specimens Removed none Packing: none EMILY MADSEN MD Jul 31, 2022 10:41
[2022-07-31] MEDS ORDERED: HYDROcodone/APAP 7.5 MG/325 MG (LORTAB, LORCET PLUS) TABLET PO PRN (10:45)
[2022-07-31] MEDS ORDERED: LIDOCAINE PF 2% 5 ML (XYLOCAINE) VIAL ONE (11:10)
[2022-07-31] MEDS ORDERED: ONDANSETRON 4 MG/2 ML (SDV) Z0FRAN ONE (11:10)
[2022-07-31] MEDS ORDERED: proPOfol 200 MG/20 ML (DIPRIVAN) VIAL IV ONE (11:11)
[2022-07-31] MEDS ORDERED: SEVOFLURANE (ULTANE) 15 ML INHAL SOLN ONE (11:11)
--- NOTE | 2022-07-31 13:36 | Anesthesia-General Post-Op ---
General Patient Condition Mental Status/LOC: Same as Preop Cardiovascular: Satisfactory Nausea/Vomiting: Absent Respiratory: Satisfactory Pain: Controlled Complications: Absent Post Op Complications Complications None Follow Up Care/Instructions Patient Instructions None needed. Anesthesia/Patient Condition Patient Condition Patient is doing well, no complaints, stable vital signs, no apparent adverse anesthesia problems. No complications reported per nursing. DASHA WARREN CRNA Jul 31, 2022 13:36
--- NOTE | 2022-07-31 13:58 | Physical Therapy Ortho Eval ---
PT Orthopedic Evaluation Type of Surgery Knee Scope left side WBAT Prior Level of Function Current Living Status: Alone (patient states her neighbors will help her) Locomotion (Upon Admit): Independent Subjective Subjective Patient in bed pre tx, agrees to PT, has no complaints of pain. Entry Into Home: Stairs With Railing Steps Into Home: 3 Objective Objective knee flexion 95 degrees, extension +7 degrees Motor Control Motor Control: Motor Control WNL Transfer SCALE: Activities may be completed with or without assistive devices. 7-Hugxqqjmms-twiazdv completes the activity by him/herself with no assistance from a helper. 5-Set-up or Clean-up Assistance-helper sets up or cleans up; patient completes activity. [place] assists only prior to or following the activity. 4-Supervision or Touching Assistance-helper provides verbal cues and/or touching/steadying and/or contact guard assistance as patient completes activity. Assistance may be provided throughout the activity or intermittently. 3-Partial/Moderate Assistance-helper does LESS THAN HALF the effort. [place] lifts, holds or supports trunk or limbs, but provides less than half the effort. 2-Substantial/Maximal Assistance-helper does MORE THAN HALF the effort. [place] lifts or holds trunk or limbs and provides more than half the effort. 3-Dbuepefia-winovv does ALL the effort. Patient does none of the effort to c omplete the activity. Or, the assistance of 2 or more helpers is required for the patient to complete the activity. If activity was not attempted, code reason: 7-Patient Refused. 9-Not Applicable-not attempted and the patient did not perform the activity before the current illness, exacerbation or injury. 10-Not Attempted due to Environmental Limitations-(lack of equipment, weather restraints, etc.). 88-Not Attempted due to Medical Conditions or Safety Concerns. Transfers (B, C, W/C) (QC): 4 Gait Summary/Comments Patient ambulated 150' with a rolling walker with CGA, and went up and down 1 step using a rolling walker and cues for foot placement, gait was fairly steady Treatment Rendered Treatment: Therapeutic Exercises, Gait Train, Step Train Exercise Instruction: Quad Sets, Heel Slides, Ankle Pumps Assessment/Goals Goal Time Frame: 1 Visit Understands HEP: Yes Safe Ambulation: Yes Plan Treatment Plan: Discharge PT/Family Agrees to Plan: Yes Time Time In: 1255 Time Out: 1306 Total Billed Treatment Time: 11 Billed Treatment Time 1 visit EVL 11' CRISTINE STAFFORD PT Jul 31, 2022 13:58
--- NOTE | 2022-07-31 20:41 | OPERATIVE REPORT ---
DATE OF SERVICE: 07/31/2022 PREOPERATIVE DIAGNOSES: 1. Left knee lateral meniscus tear. 2. Left knee medial meniscus tear. 3. 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 POSTOPERATIVE DIAGNOSIS: 1. Left knee lateral meniscus tear. 2. Left knee medial meniscus tear. 3. 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 4. Left knee chondromalacia, medial femoral condyle. PROCEDURE PERFORMED: 1. Left knee arthroscopic partial lateral meniscectomy. 2. Left knee arthroscopic partial medial meniscectomy. 3. Left knee arthroscopic chondroplasty of lateral femoral condyle. 4. Left knee arthroscopic chondroplasty of medial femoral condyle. SURGEON: Tj Madsen MD CONTROL SYSTEMS ENGINEER: Cosme Mcfarland, who assisted throughout the procedure and closed the incisions. ANESTHESIA: General endotracheal by Bianca Butts CRNA. ESTIMATED BLOOD LOSS: Minimal. DRAINS: None. COMPLICATIONS: None. POSTOPERATIVE PLAN: Routine arthroscopy protocol. The patient was transferred to recovery room awake and stable. CONDITION OF MEDICAL NECESSITY: The patient is an 82-year-old female with longstanding progressive left lateral knee pain, catching, locking and swelling. She had a large effusion. She is tender along the lateral joint line. She had pain laterally with Maci's. Radiographs revealed mild degenerative change medially and laterally. She does have some tenderness along the medial joint line as well. Due to functional impairment and failure to improve with conservative measures, the patient elected to proceed with surgical intervention. Examination under anesthesia revealed range of motion of 0/2/125 with negative Yudy, negative anterior and posterior drawer, negative pivot shift. No varus or valgus laxity. Arthroscopic findings of the patella demonstrated grade IV chondral loss centrally in 20 x 20 area. The trochlea demonstrated grade IV chondral loss superiorly in 10 x 10 area. The medial and lateral gutters were clear. The ACL and PCL were intact. The medial compartment demonstrated a degenerative tear of the posterior horn of the medial meniscus involving approximately one-third of the posterior horn. There was grade 4 chondral loss over the posterior aspect of the femoral condyle and a bite area of surrounding grade 3 chondral flaps at the periphery. The lateral compartment demonstrated a complex tear of the body and posterior horn of the lateral meniscus and approximately 1/2 the posterior horn and body. In addition, there were grade 4 chondral loss over the posterior aspect of the tibial plateau in an 8 mm x 10 area and there were grade 2-3 chondral flaps over the anterior lateral aspect of the femoral condyle in a 10 x 10 area. DESCRIPTION OF PROCEDURE: After risks and benefits of the procedure were discussed, questions were answered and informed consent was placed on the chart. The operative site was confirmed. The prep in holding and initialed by surgeon. The patient was then transferred to the operating room and after adequate level of general endotracheal anesthetic was obtained, a timeout was called, confirming the operative site. Examination under anesthesia was performed with the above findings noted. The unstable chondral flaps on the medial femoral condyle were debrided with a shaver back to a stable edge and the medial meniscus tear was debrided with a shaver back to a stable edge. Scope was redirected into the lateral compartment where the unstable lateral meniscus tear was debrided with a shaver back to a stable edge and the unstable chondral flaps on the lateral femoral condyle were debrided back to a stable edge. The meniscus was carefully probed with no further tearing or instability noted. The knee was copiously irrigated. The ports sites were closed with 4-0 nylon in simple interrupted fashion. The knee was injected with Duramorph. The portal sites were infiltrated with plain Marcaine. A soft dressing was applied. The patient was transferred to recovery room awake and stable condition. Job ID: [id number] DocumentID: [id number] Dictated Date: 07/31/2022 11:19:49 Supervisor [employer] Date: 07/31/2022 20:39:00 Dictated By: TJ MADSEN MD
== END 2022-07-31 13:10 | disposition home or self-care (01) ==
LOC: SDC 09:28
PROVIDERS: ATTEND Orthopaedic Surgery
DX: M23.322 Other meniscus derangements, posterior horn of medial meniscus, left knee (principal); M23.352 Other meniscus derangements, posterior horn of lateral meniscus, left knee; M94.262 Chondromalacia, left knee
CPT/HCPCS: 87081

== ENCOUNTER → 2022-07-31 | Outpatient (CLI) | payer MEDICARE, BC ==
--- NOTE | 2022-07-16 15:38 | HISTORY AND PHYSICAL ---
DATE OF SERVICE: ADMISSION HISTORY AND PHYSICAL This will be for outpatient surgery on 07/31/2022 for left knee arthroscopy. HISTORY OF PRESENT ILLNESS: The patient is an 82-year-old female with complaints of progressively worsening left knee pain. She has undergone treatment with injections without relief. She reports lateral knee pain. She reports catching and locking. She reports pain with twisting. She reports activity limitations because of the knee, radiographs reveal mild degenerative changes due to functional impairment and failure to improve with conservative measures, the patient elected to proceed with surgical intervention. REVIEW OF SYSTEMS: No chest pain, no shortness of breath, no dysuria. PAST MEDICAL HISTORY: Atrial fibrillation, traumatic graft with spasmodic dysphonia, arthritis, hypertension, hypercholesterolemia, pacemaker. PAST SURGICAL HISTORY: cholecystectomy, hysterectomy, pacemaker, hip fracture. SOCIAL HISTORY: The patient denies alcohol and tobacco use. FAMILY HISTORY: Significant for diabetes, cardiovascular disease. PRIMARY CARE PROVIDER: Dr. Campos. MEDICATIONS: Lanoxin, Cardizem, calcium, cranberry, multivitamin, magnesium oxide, Lasix, gabapentin, pantoprazole, Xyzal, potassium, Eliquis, fluconazole. ALLERGIES: CRESTOR. PHYSICAL EXAMINATION: GENERAL: The patient is well-developed, well-nourished, in no acute distress. HEENT: Normocephalic, atraumatic. Pupils are equal, round, reactive to light. Oropharynx is clear. NECK: Supple, no lymphadenopathy. LUNGS: Clear to auscultation bilaterally. HEART: Regular rate and rhythm. ABDOMEN: Soft, nontender, nondistended. EXTREMITIES: The left knee demonstrates a large effusion. She is markedly tender along her lateral joint line. She has pain laterally with Mcai's, but no click noted. There is no varus or valgus laxity. Negative anterior and posterior drawer. She ambulates with an antalgic gait. No pain with hip range of motion. Negative straight leg raise. 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 PLAN: Left knee arthroscopy with partial lateral meniscectomy, chondroplasty. The risks, benefits, options, ramifications and recovery were discussed at length with the patient. She understands and wishes to proceed. Job ID: [id number] DocumentID: [id number] Dictated Date: 07/16/2022 15:14:21 Radio Mechanic Helper Date: 07/16/2022 15:36:44 Dictated By: EMILY MADSEN MD
[~2022-07-31] MED LIST changes: +APIX5TAB PO; +CATHETER FLUSH 10 ML SYR IV PRN; +HOLD METFORMIN - RECEIVED CONTRAST 20 ML VIAL IV SCH; +IOHEXOL 350 MG/ML 100 ML (OMNIPAQUE 350) VIAL IV ONE; +LEVO5TAB28 PO; +NS 100 ML (IVPB) BAG IV ONE
[2022-07-31 08:05] LABS: CREATININE SERUM 0.85 MG/DL (0.60-1.30)
--- NOTE | 2022-07-31 12:35 | Diagnostic Imaging Report ---
PROCEDURE: CT angiography of the chest with contrast. TECHNIQUE: Multiple contiguous axial images were obtained through the chest after uneventful bolus administration of intravenous contrast. 3D reconstructed CTA MIP acquisitions were also performed. Auto Exposure Controls were utilized during the CT exam to meet ALARA standards for radiation dose reduction. INDICATION: Thoracic aneurysm. FINDINGS: The previous CTA chest exam performed on 04/27/2020 noted that the aortic root was dilated measuring 4.5 cm. On this exam, the aortic root seems unchanged in size. The ascending aorta is also at the upper limits of normal measuring 3.9 x 3.9 cm (normal 4.0 x 4.0 cm or less). This finding is also unchanged. The descending thoracic aorta is normal in caliber, and there is no sign of a dissection. The pulmonary arteries are not well opacified and consequently difficult to assess for a pulmonary embolus. The cardiomegaly noted previously is again evident and unchanged. There are mild chronic pulmonary changes evident, but there is no sign of failure, pneumonia, or of a pleural effusion to indicate an acute abnormality. There is no mediastinal or hilar adenopathy. The thyroid gland seems similar in appearance to the prior study. The left-sided pacemaker noted previously is again evident and unchanged. There is no obvious breast mass. The sections through the upper abdomen fail to show any sign of an acute abnormality. Mild pneumobilia is again noted. The bone windows are unremarkable for a fracture or for a destructive lesion. IMPRESSION: 1. The dilatation of the aortic root and the borderline aneurysmal dilatation of the ascending aorta seen previously are again evident and no different. There is no acute abnormality of the aorta. 2. There is cardiomegaly, but there is no sign of an acute cardiopulmonary abnormality. The pulmonary arteries were not well opacified, however, and difficult to assess. 3. These results were discussed with Dr. David Lofton. Dictated by: Dictated on workstation # [id number]
== END ==
LOC: RAD 09:15
PROVIDERS: ATTEND Internal Medicine Cardiovascular Disease
DX: I71.20 Thoracic aortic aneurysm, without rupture, unspecified (principal); I51.7 Cardiomegaly
CPT/HCPCS: 36415; 71275; 82565; 84520

== ENCOUNTER 2022-10-16 19:53 | Emergency (ER) | payer MEDICARE, BC ==
[2022-10-16 20:34] LABS: BILIRUBIN,URINE NEGATIVE (NEGATIVE); CLARITY,URINE SL CLOUDY; COLOR,URINE YELLOW; GLUCOSE, URINE (UA) NEGATIVE (NEGATIVE); KETONES,URINE NEGATIVE (NEGATIVE); LEUKOCYTE ESTERASE ,URINE 2+ (NEGATIVE); NITRITE,URINE NEGATIVE (NEGATIVE); PROTEIN,URINE TRACE (NEGATIVE)
--- NOTE | 2022-10-16 20:46 | ED General ---
General Chief Complaint: Fever-Adult/Adol Stated Complaint: FEVER, UTI Source of Information: Patient Exam Limitations: No Limitations History of Present Illness Date Seen by Provider: Oct 16, 2022 Time Seen by Provider: 20:00 Initial Comments Patient is an 82-year-old female who presents to the emergency department with suprapubic pain, urinary frequency/dysuria, and fever. Symptoms began yesterday but it progressively worsened today. Patient has a history of frequent UTIs but is not had one for over 1 year. Patient has followed up with urology in the past regarding her recurrent UTIs. Patient and family deny patient having any recent antibiotics for UTI. Patient has not had any medications outside of some Tylenol today. Allergies and Home Medications Allergies Coded Allergies: Sulfa (Sulfonamide Antibiotics) (Verified Allergy, Unknown, mouth sores, 07/11/21) Patient Home Medication List Home Medication List Reviewed: Yes Apixaban (Eliquis) 5 Mg Tablet, 5 MG PO BID, (Reported) Entered as Reported by: MARIELA WHITE on 07/24/22 1626 Ascorbic Acid (Vitamin C) 500 Mg Tablet, 500 MG PO DAILY, (Reported) Entered as Reported by: ELVIA RAO on 07/06/21 1349 Calcium Carbonate (Calcium) 600 Mg Tablet, 600 MG PO BID, (Reported) Entered as Reported by: ELVIA RAO on 07/06/21 1345 Cefpodoxime Proxetil (Cefpodoxime Proxetil) 200 Mg Tablet, 200 MG PO BID Prescribed by: Corey Craft on 10/16/22 220 Cholecalciferol (Vitamin D3) (Vitamin D3) 25 Mcg Tablet, 25 MCG PO DAILY, (Reported) Entered as Reported by: ELVIA RAO on 07/06/21 1345 Cranberry Extract (Cranberry) 500 Mg Tablet, 500 MG PO BID, (Reported) Entered as Reported by: ELVIA RAO on 07/06/21 1349 Digoxin (Digoxin) 250 Mcg Tablet, 250 MCG PO DAILY, (Reported) Entered as Reported by: MARIELENA SANDS on 05/11/20 2313 Diltiazem HCl (Diltiazem 24Hr ER) 300 Mg Cap.er.24h, 300 MG PO DAILY, (Reported) Entered as Reported by: ELVIA RAO on 07/06/21 1345 Escitalopram Oxalate (Escitalopram Oxalate) 20 Mg Tablet, 20 MG PO DAILY, (Reported) Entered as Reported by: MARIELENA SANDS on 05/11/20 231 Flaxseed Oil (Flaxseed Oil) 1,000 Mg Capsule, 1,000 MG PO BID, (Reported) Entered as Reported by: ELVIA RAO on 07/06/21 134 Furosemide (Furosemide) 40 Mg Tablet, 40 MG PO DAILY, (Reported) Entered as Reported by: MARIELENA SANDS on 05/11/20 231 Gabapentin (Neurontin) 300 Mg Capsule, 300 MG PO TID, (Reported) Entered as Reported by: ELVIA RAO on 07/06/21 134 Levocetirizine Dihydrochloride (Xyzal) 5 Mg Tablet, 5 MG PO UD, (Reported) Entered as Reported by: MARIELA WHITE on 07/24/22 1626 Magnesium Oxide (Magnesium Oxide) 250 Mg Tablet, 250 MG PO BID, (Reported) Entered as Reported by: ELVIA RAO on 07/06/21 134 Multivitamin (Multivitamins) 1 Each Tablet, 1 EACH PO DAILY, (Reported) Entered as Reported by: ELVIA RAO on 07/06/21 134 [place]-3 Fatty Acids/Fish Oil ([place]-3 1,000 mg Softgel) 1 Each Capsule, 2 EACH PO BID, (Reported) Entered as Reported by: ELVIA RAO on 07/06/21 134 Pantoprazole Sodium (Pantoprazole Sodium) 40 Mg Tablet.dr, 40 MG PO BID, (Reported) Entered as Reported by: ELVIA RAO on 07/06/21 134 Potassium Chloride (Potassium Chloride) 20 Meq Tablet.er, 20 MEQ PO DAILY, (Reported) Entered as Reported by: ELVIA RAO on 07/06/21 134 Zinc Gluconate (Zinc) 50 Mg Tablet, 50 MG PO DAILY, (Reported) Entered as Reported by: ELVIA RAO on 07/06/21 134 Review of Systems Review of Systems Constitutional: see HPI, chills, fever EENTM: no symptoms reported Respiratory: no symptoms reported Cardiovascular: no symptoms reported Gastrointestinal: see HPI, abdominal pain Genitourinary: see HPI, dysuria, frequency Musculoskeletal: no symptoms reported Skin: no symptoms reported Psychiatric/Neurological: No Symptoms Reported Hematologic/Lymphatic: No Symptoms Reported Immunological/Allergic: no symptoms reported Past [facility] Hx Immunizations Up To Date Tetanus Booster (TDap): Unknown First/Initial COVID19 Vaccinat: 12/10 Second COVID19 Vaccination [place]: 01/10 Third COVID19 Vaccination Date: 12/10 Seasonal Allergies Seasonal Allergies: No Past Medical History Surgeries: Yes (left bone graft) Appendectomy, Gallbladder, Hysterectomy, Pacemaker Respiratory: No Currently Using CPAP: Yes Currently Using BIPAP: No Cardiac: Yes (PACEMAKER-) Atrial Fibrillation, High Cholesterol, Hypertension Neurological: No Reproductive Disorders: No [employer] History: Hysterectomy, Menopausal Genitourinary: Yes (bladder lesion, gross hematuria) Gastrointestinal: Yes Gastroesophageal Reflux Musculoskeletal: Yes (osteopenia, MENISCUS TEAR) Arthritis Endocrine: No HEENT: No Cancer: No Psychosocial: Yes Anxiety Integumentary: No Blood Disorders: No Physical Exam Vital Signs Vital Signs - First Documented 10/16/22 10/16/22 20:07 22:28 Temp 38.5 Pulse 98 Resp 18 B/P (MAP) 150/89 (109) Pulse Ox 92 O2 Delivery Room Air Capillary Refill : Height, Weight, BMI Height: 5'7" Weight: 160lbs. oz. [id number]; 23.59 BMI Method:Stated General Appearance: No Apparent Distress, WD/WN HEENT: PERRL/EOMI, TMs Normal, Normal ENT Inspection, Pharynx Normal Neck: Full Range of Motion, Normal Inspection, Non Tender, Supple Respiratory: Chest Non Tender, Lungs Clear, Normal Breath Sounds Cardiovascular: Regular Rate, Rhythm, No Edema Gastrointestinal: Non Tender, Soft Neurologic/Psychiatric: Alert, Oriented x3, No Motor/Sensory Deficits, Normal Mood/Affect Skin: Normal Color, Warm/Dry Progress/Results/Core Measures Suspected Sepsis SIRS Temperature: Pulse: Respiratory Rate: Laboratory Tests 10/16/22 20:58: White Blood Count 9.9 Blood Pressure / Mean: Laboratory Tests 10/16/22 20:58: Creatinine 0.74, Platelet Count 172, Total Bilirubin 0.7 Results/Orders Lab Results Laboratory Tests Test 10/16/22 20:03 10/16/22 20:58 Range/Units Urine Color YELLOW Urine Clarity SL CLOUDY Urine pH 7.0 5-9 Urine Specific [place] 1.020 1.016-1.022 Urine Protein TRACE H NEGATIVE Urine Glucose (UA) NEGATIVE NEGATIVE Urine Ketones NEGATIVE NEGATIVE Urine Nitrite NEGATIVE NEGATIVE Urine Bilirubin NEGATIVE NEGATIVE Urine Urobilinogen 0.2 < = 1.0 MG/DL Urine Leukocyte Esterase 2+ H NEGATIVE Urine RBC (Auto) TRACE-I H NEGATIVE Urine RBC 10-25 H /HPF Urine WBC 25-50 H /HPF Urine Squamous Epithelial Cells 2-5 /HPF Urine Crystals NONE /LPF Urine Bacteria LARGE H /HPF Urine Casts NONE /LPF Urine Mucus NEGATIVE /LPF Urine Culture Indicated YES White Blood Count 9.9 4.3-11.0 10^3/uL Red Blood Count 4.38 3.80-5.11 10^6/uL Hemoglobin 12.5 11.5-16.0 g/dL Hematocrit 39 35-52 % Mean Corpuscular Volume 89 80-99 fL Mean Corpuscular Hemoglobin 29 25-34 pg Mean Corpuscular Hemoglobin Concent 32 32-36 g/dL Red Cell Distribution Width 17.1 H 10.0-14.5 % Platelet Count 172 130-400 10^3/uL Mean Platelet Volume 10.1 9.0-12.2 fL Immature Granulocyte % (Auto) 1 % Neutrophils (%) (Auto) 87 H 42-75 % Lymphocytes (%) (Auto) 9 L 12-44 % Monocytes (%) (Auto) 3 0-12 % Eosinophils (%) (Auto) 0 0-10 % Basophils (%) (Auto) 0 0-10 % Neutrophils # (Auto) 8.7 H 1.8-7.8 10^3/uL Lymphocytes # (Auto) 0.9 L 1.0-4.0 10^3/uL Monocytes # (Auto) 0.3 0.0-1.0 10^3/uL Eosinophils # (Auto) 0.0 0.0-0.3 10^3/uL Basophils # (Auto) 0.0 0.0-0.1 10^3/uL Immature Granulocyte # (Auto) 0.1 0.0-0.1 10^3/uL Sodium Level 134 L 135-145 MMOL/L Potassium Level 3.2 L 3.6-5.0 MMOL/L Chloride Level 100 98-107 MMOL/L Carbon Dioxide Level 22 21-32 MMOL/L Anion Gap 12 5-14 MMOL/L Blood Urea Nitrogen 18 7-18 MG/DL Creatinine 0.74 0.60-1.30 MG/DL Estimat Glomerular Filtration Rate 81 BUN/Creatinine Ratio 24 Glucose Level 118 H 70-105 MG/DL Calcium Level 9.4 8.5-10.1 MG/DL Corrected Calcium 9.6 8.5-10.1 MG/DL Total Bilirubin 0.7 0.1-1.0 MG/DL Aspartate Amino Transf (AST/SGOT) 61 H 5-34 U/L Alanine Aminotransferase (ALT/SGPT) 66 H 0-55 U/L Alkaline Phosphatase 102 40-136 U/L Total Protein 7.0 6.4-8.2 GM/DL Albumin 3.7 3.2-4.5 GM/DL Micro Results Microbiology 10/16/22 Urine Culture - Final, Complete Escherichia coli My Orders Orders - COREY CRAFT APRN Cbc With Automated Diff (10/16/22 20:26) Comprehensive Metabolic Panel (10/16/22 20:26) Urinalysis (10/16/22 20:26) Iv/Invasive Line Insertion .IV INSERT (10/16/22 20:26) Urine Culture (10/16/22 20:03) Ceftriaxone 1 Gm Pre-Mix (Rocephin 1 Gm (10/16/22 21:45) Vital Signs/I&O 10/16/22 10/16/22 20:07 22:28 Temp 38.5 37.2 Pulse 98 78 Resp 18 16 B/P (MAP) 150/89 (109) 132/78 Pulse Ox 92 95 O2 Delivery Room Air Capillary Refill : Progress Note : Progress Note Patient is nontoxic and well-hydrated on exam. Initial vital signs notable for fever. Vital signs are otherwise reassuring. Patient answers all questions appropriately and is alert. Abdominal exam is reassuring other than some mild suprapubic tenderness to palpation. Orders placed for CBC, CMP, urinalysis, and IV insertion. CBC without leukocytosis but a left shift is noted. Mild thrombocytopenia also noted. CMP notable for some mild hyponatremia, hypokalemia, and transaminitis. Urinalysis notable for leukocyte esterase, pyuria, and bacteriuria suspicious for UTI. Patient was given dose of Rocephin in the emergency department and will be discharged home with prescription for antibiotics. Discussed importance of close follow-up with PCP. Return precautions for urgent symptomology discussed. Patient and family verbalized understanding. Departure Impression Primary Impression: UTI (urinary tract infection) Qualified Codes: N30.00 - Acute cystitis without hematuria Disposition: HOME, SELF-CARE Condition: Stable Departure-Patient Inst. Decision time for Depature: 21:50 Referrals: JONY SALTER DO (PCP) Primary Care Physician MIGUELITO SALTER DNP (Family) Primary Care Physician Patient Instructions: Urinary Tract Infection, Adult ED Scripts Cefpodoxime Proxetil (Cefpodoxime Proxetil) 200 Mg Tablet 200 MG PO BID for 10 Days, #20 TAB 0 Refills Prov: COREY CRAFT APRN 10/16/22 COREY CRAFT APRN Oct 16, 2022 20:46
[2022-10-16 21:02] LABS: BACTERIA,URINE LARGE /HPF; WBC,URINE 25-50 /HPF
[2022-10-16 21:07] LABS: BASOPHILS % (AUTO) 0 % (0-10); EOSINOPHILS % (AUTO) 0 % (0-10); HEMATOCRIT 39 % (35-52); HEMOGLOBIN 12.5 g/dL (11.5-16.0); LYMPHOCYTES # (AUTO) 0.9 10^3/uL (1.0-4.0); LYMPHOCYTES % (AUTO) 9 % (12-44); MEAN CORPUSCULAR HEMOGLOBIN 29 pg (25-34); MEAN CORPUSCULAR HGB CONC 32 g/dL (32-36); MEAN CORPUSCULAR VOLUME 89 fL (80-99); MEAN PLATELET VOLUME 10.1 fL (9.0-12.2); MONOCYTES # (AUTO) 0.3 10^3/uL (0.0-1.0); MONOCYTES % (AUTO) 3 % (0-12); NEUTROPHILS # (AUTO) 8.7 10^3/uL (1.8-7.8); NEUTROPHILS % (AUTO) 87 % (42-75); PLATELET COUNT 172 10^3/uL (130-400); WHITE BLOOD COUNT 9.9 10^3/uL (4.3-11.0)
[2022-10-16 21:21] LABS: ALBUMIN 3.7 GM/DL (3.2-4.5); POTASSIUM 3.2 MMOL/L (3.6-5.0)
[2022-10-16 21:23] LABS: CALCIUM 9.4 MG/DL (8.5-10.1)
[2022-10-16 21:26] LABS: BILIRUBIN,TOTAL 0.7 MG/DL (0.1-1.0)
[2022-10-16 21:27] LABS: CREATININE SERUM 0.74 MG/DL (0.60-1.30)
[2022-10-16] MEDS ORDERED: cefTRIAXone 1 GM PRE-MIX 50 ML IV ONE (21:45)
[2022-10-16] MEDS ORDERED: CEFP200T2 PO (22:01)
[2022-10-16 22:28] VITALS: BP 132/78
== END 2022-10-16 22:28 | disposition home or self-care (01) ==
LOC: EDUNIT# 19:53 → ER 19:55
DX: N39.0 Urinary tract infection, site not specified (principal)
CPT/HCPCS: 36415; 80053; 81000; 85025; 87077; 87088; 87186; 99282

== ENCOUNTER 2022-12-30 10:30 | Emergency (ER) | payer MEDICARE, BC ==
[~2022-12-30] VITALS: Ht 170 cm; Wt 84.5 kg
[~2022-12-30 10:30] MED LIST changes: +CEFP200T2 PO
[2022-12-30 11:08] VITALS: BP 147/75
[2022-12-30 11:11] LABS: BASOPHILS % (AUTO) 0 % (0-10); EOSINOPHILS % (AUTO) 1 % (0-10); HEMATOCRIT 35 % (35-52); HEMOGLOBIN 11.2 g/dL (11.5-16.0); LYMPHOCYTES % (AUTO) 25 % (12-44); MEAN CORPUSCULAR HEMOGLOBIN 29 pg (25-34); MEAN CORPUSCULAR HGB CONC 32 g/dL (32-36); MEAN CORPUSCULAR VOLUME 89 fL (80-99); MEAN PLATELET VOLUME 9.5 fL (9.0-12.2); MONOCYTES # (AUTO) 0.5 10^3/uL (0.0-1.0); MONOCYTES % (AUTO) 7 % (0-12); NEUTROPHILS # (AUTO) 5.3 10^3/uL (1.8-7.8); NEUTROPHILS % (AUTO) 67 % (42-75); PLATELET COUNT 149 10^3/uL (130-400); WHITE BLOOD COUNT 7.9 10^3/uL (4.3-11.0)
[2022-12-30 11:24] LABS: ALBUMIN 3.6 GM/DL (3.2-4.5); POTASSIUM 3.6 MMOL/L (3.6-5.0)
[2022-12-30 11:25] LABS: CALCIUM 9.6 MG/DL (8.5-10.1)
[2022-12-30 11:26] LABS: TOTAL PROTEIN 7.1 GM/DL (6.4-8.2)
[2022-12-30 11:28] LABS: BILIRUBIN,TOTAL 0.4 MG/DL (0.1-1.0)
--- NOTE | 2022-12-30 11:29 | ED General ---
General Chief Complaint: General Problems/Pain Stated Complaint: RETAINING FLUIDS Nursing Triage Note: Patient has presented to ER with cc of swelling in her legs and ankles. The patient reports that for the last 4 or 5 days she has had increased swelling, she feels like she is getting fluid in her lungs. She is more short of breath the several days, she reports that if she leans forward she is more short of breath. She takes lasix every other day but this weekend she took one every day until this morning - she did not take her lasix this morning. Source of Information: Patient Exam Limitations: No Limitations (MEG SETHI APRN) History of Present Illness Date Seen by Provider: Dec 30, 2022 Time Seen by Provider: 11:13 Initial Comments 82-year-old female presents to the ED with complaints of being "full of fluid." She states that approximately 4 days ago she noticed a 10 pound weight increase over 24 hours, she reports she is now 13 pounds heavier. She normally takes Lasix every other day, but started taking it daily on Friday, but she did not take her dose today. She complains of bilateral swelling in her legs, that goes all the way up to her abdomen. She reports her chest feels tight, like her lungs are tight due to increased fluid, this started 4 days ago. She reports that she has had a mild cough. She reports she has been getting short of air, especially with exertion. She had COVID 2.5 weeks ago, she was on Decadron, which she finished just under 2 weeks ago. She is also complaining of pain in her upper back, between her shoulder blades. Denies fevers, abdominal pain, nausea, vomiting, diarrhea. She has a history of atrial fibrillation, and osteoarthritis. She currently takes Lasix, diltiazem, digoxin, Eliquis, pantoprazole, gabapentin, potassium, escitalopram, as well as several vitamins/minerals. (MEG SETHI APRN) Allergies and Home Medications Allergies Coded Allergies: Sulfa (Sulfonamide Antibiotics) (Verified Allergy, Unknown, mouth sores, 07/11/21) Patient Home Medication List Home Medication List Reviewed: Yes (MEG SETHI APRN) Apixaban (Eliquis) 5 Mg Tablet, 5 MG PO BID, (Reported) Entered as Reported by: MARIELA WHITE on 07/24/22 1626 Ascorbic Acid (Vitamin C) 500 Mg Tablet, 500 MG PO DAILY, (Reported) Entered as Reported by: ELVIA RAO on 07/06/21 134 Calcium Carbonate (Calcium) 600 Mg Tablet, 600 MG PO BID, (Reported) Entered as Reported by: ELVIA RAO on 07/06/21 134 Cefpodoxime Proxetil (Cefpodoxime Proxetil) 200 Mg Tablet, 200 MG PO BID Prescribed by: Corey Craft on 10/16/222200 Cholecalciferol (Vitamin D3) (Vitamin D3) 25 Mcg Tablet, 25 MCG PO DAILY, (Reported) Entered as Reported by: ELVIA RAO on 07/06/21 134 Cranberry Extract (Cranberry) 500 Mg Tablet, 500 MG PO BID, (Reported) Entered as Reported by: ELVIA RAO on 07/06/21 134 Digoxin (Digoxin) 250 Mcg Tablet, 250 MCG PO DAILY, (Reported) Entered as Reported by: MARIELENA SANDS on 05/11/20 231 Diltiazem HCl (Diltiazem 24Hr ER) 300 Mg Cap.er.24h, 300 MG PO DAILY, (Reported) Entered as Reported by: ELVIA RAO on 07/06/21 134 Escitalopram Oxalate (Escitalopram Oxalate) 20 Mg Tablet, 20 MG PO DAILY, (Reported) Entered as Reported by: MARIELENA SANDS on 05/11/20 2313 Flaxseed Oil (Flaxseed Oil) 1,000 Mg Capsule, 1,000 MG PO BID, (Reported) Entered as Reported by: ELVIA RAO on 07/06/21 134 Furosemide (Furosemide) 40 Mg Tablet, 40 MG PO DAILY, (Reported) Entered as Reported by: MARIELENA SANDS on 05/11/20 231 Gabapentin (Neurontin) 300 Mg Capsule, 300 MG PO TID, (Reported) Entered as Reported by: ELVIA RAO on 07/06/21 134 Levocetirizine Dihydrochloride (Xyzal) 5 Mg Tablet, 5 MG PO UD, (Reported) Entered as Reported by: MARIELA WHITE on 07/24/22 162 Magnesium Oxide (Magnesium Oxide) 250 Mg Tablet, 250 MG PO BID, (Reported) Entered as Reported by: ELVIA RAO on 07/06/21 1345 Multivitamin (Multivitamins) 1 Each Tablet, 1 EACH PO DAILY, (Reported) Entered as Reported by: ELVIA RAO on 07/06/21 1345 [place]-3 Fatty Acids/Fish Oil ([place]-3 1,000 mg Softgel) 1 Each Capsule, 2 EACH PO BID, (Reported) Entered as Reported by: ELVIA RAO on 07/06/21 1345 Pantoprazole Sodium (Pantoprazole Sodium) 40 Mg Tablet.dr, 40 MG PO BID, (Reported) Entered as Reported by: ELVIA RAO on 07/06/21 1345 Potassium Chloride (Potassium Chloride) 20 Meq Tablet.er, 20 MEQ PO DAILY, (Reported) Entered as Reported by: ELVIA RAO on 07/06/21 1349 Zinc Gluconate (Zinc) 50 Mg Tablet, 50 MG PO DAILY, (Reported) Entered as Reported by: ELVIA RAO on 07/06/21 1349 Review of Systems Review of Systems Constitutional: see HPI (MEG SETHI APRN) Past Ndpcjbu-Pqvlex-Fsldyo Hx Patient Social History Tobacco Use?: No Use of E-Cig and/or Vaping dev: No Substance use?: No Alcohol Use?: No (MEG SETHI APRN) Immunizations Up To Date Tetanus Booster (TDap): Unknown First/Initial COVID19 Vaccinat: 12/10 Second COVID19 Vaccination [place]: 01/10 Third COVID19 Vaccination Date: 12/10 (MEG SETHI APRN) Seasonal Allergies Seasonal Allergies: No (MEG SETHI APRN) Past Medical History Surgeries: Yes (left bone graft) Appendectomy, Gallbladder, Hysterectomy, Pacemaker Respiratory: No Currently Using CPAP: Yes Currently Using BIPAP: No Cardiac: Yes (PACEMAKER-) Atrial Fibrillation, High Cholesterol, Hypertension Neurological: No Reproductive Disorders: No CARD SETTER History: Hysterectomy, Menopausal Genitourinary: Yes (bladder lesion, gross hematuria) Gastrointestinal: Yes Gastroesophageal Reflux Musculoskeletal: Yes (osteopenia, MENISCUS TEAR) Arthritis Endocrine: No HEENT: No Cancer: No Psychosocial: Yes Anxiety Integumentary: No Blood Disorders: No (MEG SETHI APRN) Physical Exam Vital Signs Vital Signs - First Documented 12/30/22 11:08 Temp 37.1 Pulse 59 Resp 22 B/P (MAP) 147/75 (99) Pulse Ox 95 O2 Delivery Room Air (COLTON BENNETT MD) Vital Signs Capillary Refill : (MEG SETHI APRN) Height, Weight, BMI Height: 5'7" Weight: 160lbs. oz. [id number]; 29.00 BMI Method:Stated General Appearance: No Apparent Distress, WD/WN Neck: Normal Inspection, Supple Respiratory: Lungs Clear, Normal Breath Sounds, No Accessory Muscle Use, No Respiratory Distress Cardiovascular: Regular Rate, Rhythm, No Murmur, Normal Peripheral Pulses Gastrointestinal: Normal Bowel Sounds Back: Other (Kyphosis) Extremity: Normal Capillary Refill, Normal Range of Motion, Non Tender, No Calf Tenderness, Pedal Edema (1+ pitting edema in the ankles), Swelling Neurologic/Psychiatric: Alert, Normal Mood/Affect Skin: Normal Color, Warm/Dry (MEG SETHI APRN) Progress/Results/Core Measures Suspected Sepsis SIRS Temperature: Pulse: 59 Respiratory Rate: 22 Laboratory Tests 12/30/22 11:00: White Blood Count 7.9 Blood Pressure 147 /75 Mean: 99 Laboratory Tests 12/30/22 11:00: Creatinine 0.79, INR Comment 1.2, Platelet Count 149, Total Bilirubin 0.4 (MEG SETHI APRN) Results/Orders Lab Results Laboratory Tests Test 12/30/22 11:00 Range/Units White Blood Count 7.9 4.3-11.0 10^3/uL Red Blood Count 3.91 3.80-5.11 10^6/uL Hemoglobin 11.2 L 11.5-16.0 g/dL Hematocrit 35 35-52 % Mean Corpuscular Volume 89 80-99 fL Mean Corpuscular Hemoglobin 29 25-34 pg Mean Corpuscular Hemoglobin Concent 32 32-36 g/dL Red Cell Distribution Width 16.7 H 10.0-14.5 % Platelet Count 149 130-400 10^3/uL Mean Platelet Volume 9.5 9.0-12.2 fL Immature Granulocyte % (Auto) 1 % Neutrophils (%) (Auto) 67 42-75 % Lymphocytes (%) (Auto) 25 12-44 % Monocytes (%) (Auto) 7 0-12 % Eosinophils (%) (Auto) 1 0-10 % Basophils (%) (Auto) 0 0-10 % Neutrophils # (Auto) 5.3 1.8-7.8 10^3/uL Lymphocytes # (Auto) 2.0 1.0-4.0 10^3/uL Monocytes # (Auto) 0.5 0.0-1.0 10^3/uL Eosinophils # (Auto) 0.0 0.0-0.3 10^3/uL Basophils # (Auto) 0.0 0.0-0.1 10^3/uL Immature Granulocyte # (Auto) 0.0 0.0-0.1 10^3/uL Prothrombin Time 15.4 H 12.2-14.7 SEC INR Comment 1.2 0.8-1.4 Activated Partial Thromboplast Time 34 24-35 SEC D-Dimer 1.63 H 0.00-0.49 UG/ML Sodium Level 140 135-145 MMOL/L Potassium Level 3.6 3.6-5.0 MMOL/L Chloride Level 105 98-107 MMOL/L Carbon Dioxide Level 26 21-32 MMOL/L Anion Gap 9 5-14 MMOL/L Blood Urea Nitrogen 14 7-18 MG/DL Creatinine 0.79 0.60-1.30 MG/DL Estimat Glomerular Filtration Rate 75 BUN/Creatinine Ratio 18 Glucose Level 153 H 70-105 MG/DL Calcium Level 9.6 8.5-10.1 MG/DL Corrected Calcium 9.9 8.5-10.1 MG/DL Magnesium Level 1.9 1.6-2.4 MG/DL Total Bilirubin 0.4 0.1-1.0 MG/DL Aspartate Amino Transf (AST/SGOT) 15 5-34 U/L Alanine Aminotransferase (ALT/SGPT) 25 0-55 U/L Alkaline Phosphatase 71 40-136 U/L Troponin I < 0.028 <0.028 NG/ML B-Type Natriuretic Peptide 135.0 H <100.0 PG/ML Total Protein 7.1 6.4-8.2 GM/DL Albumin 3.6 3.2-4.5 GM/DL (COLTON BENNETT MD) My Orders Orders - COLTON BENNETT MD Bnp G[place]am (12/30/22 10:54) Cbc With Automated Diff (12/30/22 10:54) Comprehensive Metabolic Panel (12/30/22 10:54) Ed Iv/Invasive Line Start (12/30/22 10:54) (COLTON BENNETT MD) Vital Signs/I&O 12/30/22 11:08 Temp 37.1 Pulse 59 Resp 22 B/P (MAP) 147/75 (99) Pulse Ox 95 O2 Delivery Room Air (COLTON BENNETT MD) Vital Signs/I&O Capillary Refill : (MEG SETHI APRN) Blood Pressure Mean: 99 Progress Note : Time: 11:32 Progress Note Patient seen and evaluated, resting comfortably in bed, no acute distress. Based on exam and symptoms, work-up initiated including CBC, CMP, BNP, troponin, magnesium, coags, D-dimer, EKG, chest x-ray. 1225 labs reviewed. CBC grossly normal, hemoglobin slightly decreased 11.2. CMP grossly normal, glucose elevated 153. BNP elevated 135. Magnesium normal 1.9. Coags show increased PT 15.4. D-dimer elevated 1.63. Troponin negative. Chest x-ray reviewed, negative for acute cardiopulmonary findings. Pulmonary vascularity is normal. Ultrasound of bilateral legs, and CT angio ordered due to elevated D-dimer. [address] reviewed. Ultrasound negative for DVT. CT negative for PE. Results discussed with patient. [address] Olmedo, wireworker supervisor, he recommends IV Lasix 40 mg here now, and outpatient follow-up. 1400 plan discussed with patient. She is agreeable to IV Lasix and discharge. She will call the cardiology clinic today or tomorrow to schedule a follow-up appointment. Discharge instructions and return precautions provided. (MEG SETHI APRN) ECG Initial ECG Impression Date: Dec 30, 2022 Initial ECG Impression Time: 11:25 Initial ECG Rate: 60 Initial ECG Rhythm: A Fib/Flutter Initial ECG Intervals: Normal Initial ECG Impression: Atrial Fibrillation Initial ECG Comparisson: Unchanged (MEG SETHI APRN) Diagnostic Imaging Diagonstic Imaging: Xray Plain Films/CT/US/NM/MRI: chest Comments [facility] [place], [place] NAME: HUSSEIN SALTER [facility] REC#: [id number] PT STATUS: REG ER : 1940 PHYSICIAN: MEG SETHI APRN ADMIT DATE: 12/30/22/ER Signed Date of Exam:12/30/22 CHEST 1 VIEW, AP/PA ONLY INDICATION: Chest pain. EXAMINATION: Portable chest at 11:35 AM. FINDINGS: There is a unipolar pacemaker. The heart size and pulmonary vascularity are normal. The lungs are clear. There are no effusions or pneumothoraces. IMPRESSION: No acute abnormalities in the chest. Dictated by: Dictated on workstation # [id number] Dict: 12/30/22 1133 Trans: 12/30/22 1158 MAUREEN [id number] Interpreted by: MEGHA PEREZ MD Electronically signed by: MEGHA PEREZ MD 12/30/22 1158 Diagonstic Imaging: Ultrasound Plain Films/CT/US/NM/MRI: leg Comments [email or web address] [place] [place] NAME: HUSSEIN SALTER [facility] REC#: [id number] PT STATUS: REG ER : 1940 PHYSICIAN: MEG SETHI APRN ADMIT DATE: 12/30/22/ER Signed Date of Exam:12/30/22 US VENOUS LOWER EXT ZACHARY PROCEDURE: US Venous Lower Ext Zachary. TECHNIQUE: Multiple real-time grayscale images were obtained over the lower extremities in various projections, bilaterally. Additional duplex Doppler and color Doppler images were also obtained. INDICATION: Bilateral leg edema. COMPARISON: 07/12/2021. FINDINGS: The bilateral common femoral vein, femoral vein, deep femoral vein, and popliteal vein are normal in appearance. These vessels show normal compressibility, color flow and doppler augmentation. The visualized deep calf veins demonstrate no distinct intraluminal thrombus. IMPRESSION: 1. No sonographic evidence of deep venous thrombosis in the bilateral lower extremities. Dictated by: Dictated on workstation # [id number] Dict: 12/30/22 1250 Trans: 12/30/22 1257 [id number] Interpreted by: ALETA COVINGTON DO Diagonstic Imaging: CT Plain Films/CT/US/NM/MRI: chest Comments [facility] [place] [place] NAME: HUSSEIN SALTER [facility] REC#: [id number] PT STATUS: REG ER : 1940 PHYSICIAN: MEG SETHI APRN ADMIT DATE: 12/30/22/ER Signed Date of Exam:12/30/22 CT ANGIO CHEST W (R/O PE) TECHNIQUE: CTA of the chest was performed with contrast bolus timing optimized for evaluation of the pulmonary arteries. 3D reformats were obtained and reviewed. REASON FOR EXAM: Shortness of breath. Elevated D-dimer. COMPARISON: 07/31/2022. FINDINGS: This helical CT pulmonary angiogram is diagnostic to the subsegmental level branches of the pulmonary artery and demonstrates no pulmonary emboli. The heart is prominent. There is no pericardial effusion. A left pectoral pacemaker is in place. There is no axillary, mediastinal, or hilar adenopathy. No focal consolidation or mass. Dependent opacities are seen bilaterally. No suspicious nodules. No pleural effusion or pneumothorax. Osseous structures appear normal. Limited views of the upper abdomen are unremarkable. IMPRESSION: 1. No acute pulmonary embolus. 2. Cardiomegaly. 3. Small amount of dependent opacities bilaterally, likely representing atelectasis. Dictated by: Dictated on workstation # [id number] Dict: 12/30/22 1258 Trans: 12/30/22 1321 [facility] [id number] Interpreted by: ALETA COVINGTON DO Electronically signed by: ALETA COVINGTON DO 12/30/22 1321 (MEG SETHI APRN) Departure Impression Primary Impression: Edema Disposition: 01 HOME, SELF-CARE Condition: Stable Departure-Patient Inst. Decision time for Depature: 14:03 (MEG SETHI APRN) Referrals: JONY SALTER DO (PCP) Primary Care Physician MIGUELITO SALTER DNP (Family) Primary Care Physician Patient Instructions: Swelling Add. Discharge Instructions: Call Dr. Bustos's office today or tomorrow to schedule a follow-up appointment. Continue your home medications. Return for worsening shortness of breath, chest pain, worsening swelling, or any other new, concerning, or worsening symptoms. All discharge instructions reviewed with patient and/or family. Voiced understanding. ATTENDING PHYSICIAN NOTE: I was physically present as attending physician in the emergency department during the care of this patient, but I was not directly involved in the decision making or delivery of care for this patient. (COLTON BENNETT MD) MEG SETHI APRN Dec 30, 2022 11:29 COLTON BENNETT MD Dec 31, 2022 15:46
[2022-12-30 11:30] LABS: CREATININE SERUM 0.79 MG/DL (0.60-1.30)
--- NOTE | 2022-12-30 11:36 | Diagnostic Imaging Report ---
INDICATION: Chest pain. EXAMINATION: Portable chest at 11:35 AM. FINDINGS: There is a unipolar pacemaker. The heart size and pulmonary vascularity are normal. The lungs are clear. There are no effusions or pneumothoraces. IMPRESSION: No acute abnormalities in the chest. Dictated by: Dictated on workstation # [id number]
[2022-12-30 11:41] LABS: INR 1.2 (0.8-1.4); PROTHROMBIN TIME PATIENT 15.4 SEC (12.2-14.7)
--- NOTE | 2022-12-30 12:52 | Diagnostic Imaging Report ---
PROCEDURE: US Venous Lower Ext Ryan. TECHNIQUE: Multiple real-time grayscale images were obtained over the lower extremities in various projections, bilaterally. Additional duplex Doppler and color Doppler images were also obtained. INDICATION: Bilateral leg edema. COMPARISON: 07/12/2021. FINDINGS: The bilateral common femoral vein, femoral vein, deep femoral vein, and popliteal vein are normal in appearance. These vessels show normal compressibility, color flow and doppler augmentation. The visualized deep calf veins demonstrate no distinct intraluminal thrombus. IMPRESSION: 1. No sonographic evidence of deep venous thrombosis in the bilateral lower extremities. Dictated by: Dictated on workstation # [id number]
[2022-12-30] MEDS ORDERED: HOLD METFORMIN - RECEIVED CONTRAST 20 ML VIAL IV SCH (13:00)
[2022-12-30] MEDS ORDERED: IOHEXOL 350 MG/ML 100 ML (OMNIPAQUE 350) VIAL IV ONE (13:00)
[2022-12-30] MEDS ORDERED: NS 100 ML (IVPB) BAG IV ONE (13:00)
--- NOTE | 2022-12-30 13:08 | Diagnostic Imaging Report ---
TECHNIQUE: CTA of the chest was performed with contrast bolus timing optimized for evaluation of the pulmonary arteries. 3D reformats were obtained and reviewed. REASON FOR EXAM: Shortness of breath. Elevated D-dimer. COMPARISON: 07/31/2022. FINDINGS: This helical CT pulmonary angiogram is diagnostic to the subsegmental level branches of the pulmonary artery and demonstrates no pulmonary emboli. The heart is prominent. There is no pericardial effusion. A left pectoral pacemaker is in place. There is no axillary, mediastinal, or hilar adenopathy. No focal consolidation or mass. Dependent opacities are seen bilaterally. No suspicious nodules. No pleural effusion or pneumothorax. Osseous structures appear normal. Limited views of the upper abdomen are unremarkable. IMPRESSION: 1. No acute pulmonary embolus. 2. Cardiomegaly. 3. Small amount of dependent opacities bilaterally, likely representing atelectasis. Dictated by: Dictated on workstation # [id number]
[2022-12-30] MEDS ORDERED: FUROSEMIDE 40 MG/4 ML INJ (LASIX) IVP ONE (14:00)
== END 2022-12-30 14:10 | disposition home or self-care (01) ==
LOC: EDUNIT# 10:30 → ER 10:33
DX: R60.0 Localized edema (principal); I48.91 Unspecified atrial fibrillation; I10 Essential (primary) hypertension; K21.9 Gastro-esophageal reflux disease without esophagitis; F41.9 Anxiety disorder, unspecified; D64.9 Anemia, unspecified; R79.89 Other specified abnormal findings of blood chemistry; R79.1 Abnormal coagulation profile; Z86.16 Personal history of COVID-19; Z79.899 Other long term (current) drug therapy; Z79.02 Long term (current) use of antithrombotics/antiplatelets
CPT/HCPCS: 36415; 71045; 71275; 80053; 83735; 83880; 84484; 85025; 85379; 85610; 85730; 93005; 93970

== ENCOUNTER → 2023-01-14 | Outpatient (CLI) | payer MEDICARE, BC | LOC: CARD 09:54 | PROVIDERS: ATTEND Internal Medicine Cardiovascular Disease | DX: I08.3 Combined rheumatic disorders of mitral, aortic and tricuspid valves (principal) | CPT/HCPCS: 93306 ==

== ENCOUNTER 2023-02-04 10:02 | Day surgery (SDC) | payer MEDICARE, BC ==
[~2023-02-04] VITALS: Ht 170.2 cm; Wt 73.8 kg
[2023-02-04] VITALS (13 sets, daily range): BP systolic 123–155; BP diastolic 73–89
[2023-02-04] MEDS ORDERED: LIDOCAINE 1% INJ 20 ML VIAL ONE (10:10)
[2023-02-04] MEDS ORDERED: NS IV 1000 ML 2,000 ML ONE (10:12)
[2023-02-04] MEDS ORDERED: HEParin (CATH LAB) 1,000 ML IV ONE (10:12)
[2023-02-04] MEDS ORDERED: NS IV 1000 ML 1,000 ML IV SCH ×3 (10:30→13:30)
[2023-02-04 10:44] LABS: HEMATOCRIT 41 % (35-52); MEAN CORPUSCULAR HEMOGLOBIN 28 pg (25-34); MEAN CORPUSCULAR HGB CONC 32 g/dL (32-36); MEAN CORPUSCULAR VOLUME 90 fL (80-99); MEAN PLATELET VOLUME 10.6 fL (9.0-12.2); PLATELET COUNT 188 10^3/uL (130-400); WHITE BLOOD COUNT 8.4 10^3/uL (4.3-11.0)
[2023-02-04 11:02] LABS: ALBUMIN 4.2 GM/DL (3.2-4.5); BILIRUBIN,TOTAL 0.4 MG/DL (0.1-1.0); CALCIUM 9.7 MG/DL (8.5-10.1); CREATININE SERUM 0.82 MG/DL (0.60-1.30); POTASSIUM 3.7 MMOL/L (3.6-5.0); TOTAL PROTEIN 7.7 GM/DL (6.4-8.2)
[2023-02-04] MEDS ORDERED: MIDAZOLAM 5 MG/5 ML (VERSED) VIAL ONE (11:02)
[2023-02-04] MEDS ORDERED: fentaNYL INJ 100 MCG/2 ML AMP ONE (11:02)
[2023-02-04] MEDS ORDERED: ceFAZolin INJECTION 1,000 MG ONE (11:02)
[2023-02-04] MEDS ORDERED: TRAM50TA3 PO (11:04)
[2023-02-04] MEDS ORDERED: OMEG100032 PO (11:04)
[2023-02-04] MEDS ORDERED: FLUC150T41 PO (11:04)
[2023-02-04] MEDS ORDERED: GABA-486 PO (11:04)
[2023-02-04] MEDS ORDERED: ACET-2650 PO (11:04)
[2023-02-04] MEDS ORDERED: FERR325T18 PO (11:04)
[2023-02-04] MEDS ORDERED: FLAX10004 PO (11:04)
[2023-02-04 11:20] LABS: INR 0.9 (0.8-1.4); PROTHROMBIN TIME PATIENT 12.8 SEC (12.2-14.7)
[2023-02-04] MEDS ORDERED: CEFU500T63 PO (13:22)
--- NOTE | 2023-02-04 13:22 | Discharge Inst-Cardiology ---
Discharge Inst-Cardiac Discharge Medications New Medications: Cefuroxime Axetil (Cefuroxime) 500 Mg Tablet 500 MG PO BID, #10 TAB 0 Refills Continued Medications: Acetaminophen (Tylenol Arthritis) 650 Mg Tablet.er 1300 MG PO BID, TAB Apixaban (Eliquis) 5 Mg Tablet 5 MG PO BID, TAB Ascorbic Acid (Vitamin C) 500 Mg Tablet 500 MG PO DAILY, TAB Calcium Carbonate (Calcium) 600 Mg Tablet 600 MG PO BID, TAB Cholecalciferol (Vitamin D3) (Vitamin D3) 25 Mcg Tablet 25 MCG PO DAILY, TAB Cranberry Extract (Cranberry) 500 Mg Tablet 500 MG PO BID, TAB Digoxin (Digoxin) 250 Mcg Tablet 250 MCG PO DAILY Diltiazem HCl (Diltiazem 24Hr ER) 300 Mg Cap.er.24h 300 MG PO DAILY, CAP Escitalopram Oxalate (Escitalopram Oxalate) 20 Mg Tablet 20 MG PO HS Ferrous Sulfate (Ferrous Sulfate) 325 Mg (65 Mg Iron) Tablet 325 MG PO FRI,FRI, TAB Flaxseed Oil (Flaxseed Oil) 1,000 Mg Capsule 1000 MG PO BID, CAP Fluconazole (Fluconazole) 150 Mg Tablet 150 MG PO WEEK PRN for DRY MOUTH, TAB Furosemide (Furosemide) 40 Mg Tablet 40 MG PO DAILY Gabapentin (Neurontin) 300 Mg Capsule 300 MG PO TID, CAP TAKES WITH 100MG TO EQUAL 400MG Gabapentin (Gabapentin) 100 Mg Capsule 100 MG PO TID, CAP TAKES WITH 300MG TO EQUAL 400MG Magnesium Oxide (Magnesium Oxide) 250 Mg Tablet 250 MG PO DAILY, TAB Multivitamin (Multivitamins) 1 Each Tablet 1 EACH PO DAILY, TAB [place]-3/Dha/Epa/Fish Oil (Fish Oil 1,000 mg Softgel) 1,000 Mg (120 Mg-180 Mg) Capsule 1000 MG PO BID, CAP Pantoprazole Sodium (Pantoprazole Sodium) 40 Mg Tablet.dr 40 MG PO BID, TAB Potassium Chloride (Potassium Chloride) 20 Meq Tablet.er 20 MEQ PO DAILY, TAB Tramadol HCl (Tramadol HCl) 50 Mg Tablet 50 MG PO BID PRN for PAIN-MODERATE (5-7), TAB Zinc Gluconate (Zinc) 50 Mg Tablet 50 MG PO DAILY, TAB SAIRA PABLO MD FACP FAC CCDS February 04, 2023 13:22
--- NOTE | 2023-02-04 13:23 | Discharge Inst-Post Device ---
Discharge Inst-Post Device Follow up/Plan F/u at Dr Bustos'janna for wound inspectin on 02/07/23 F/u at Dr Bustos'janna for doctor visit in 6 weeks Heart Healthy Diet Activity as tolerated. No driving for one week. Leave dressing on until follow up at the office. SAIRA BUSTOS MD FACP FAC CCDS February 04, 2023 13:23
[2023-02-04] MEDS ORDERED: PATIENT MAY USE OWN MEDS, ALL PO SCH (13:30)
--- NOTE | 2023-02-04 15:36 | Diagnostic Imaging Report ---
INDICATION: Pacemaker generator change. Frontal chest obtained at 1:39 p.m. and compared to 12/30/2022. Compared to the prior study, there has been revision of the pacemaker battery. The single lead appears intact with tip overlying the RV apex. There is prominent cardiomegaly. There is mild central vascular congestion. There is no pneumothorax or pleural fluid or overt consolidation. IMPRESSION: Status post pacemaker battery change compared to the prior study. Cardiomegaly and central vascular congestion with no infiltrate or pleural fluid or pneumothorax. Dictated by: Dictated on workstation # [id number]
--- NOTE | 2023-02-04 21:12 | OPERATIVE REPORT ---
DATE OF SERVICE: 02/04/2023 PREOPERATIVE DIAGNOSIS: Pacemaker at elective replacement indicator. POSTOPERATIVE DIAGNOSIS: Pacemaker at elective replacement indicator. PROCEDURE: Single-chamber pulse generator change. HISTORY OF PRESENT ILLNESS: The patient is an 82-year-old lady with a single-chamber pacemaker that has reached elective replacement indicator. Pulse generator change was carried out today after having obtained an informed consent. DESCRIPTION OF PROCEDURE: She was brought to the cardiac catheterization laboratory in a fasting state. The left prepectoral area, the site of previous pacemaker implantation, was prepared and draped in the usual sterile fashion. 1% lidocaine used for local anesthesia. Sharp and blunt dissection was used to open the pacemaker pocket and removed the pacemaker from the pocket. The pocket was thoroughly irrigated with normal saline. The old pacemaker was detached from the leads and the new pacemaker was attached. The pacemaker was placed in a TYRX pouch and the lead and the device were placed back in the pocket and the pocket was closed in two layers using 3-0 Vicryl. The lead was tested through the device and found to be functioning normally. The R-wave amplitude was 4.3 millivolts. Pacing impedance was 380 ohms. Ventricular capture threshold was 1 volt at 0.4 milliseconds. The pacemaker remains in the VVIR mode with a lower rate of 60 beats per minute and upper activity rate of 130 beats per minute. Job ID: [id number] DocumentID: [id number] Dictated Date: 02/04/2023 13:03:52 Front End Web Developer Date: 02/04/2023 21:10:00 Dictated By: SAIRA PABLO MD; DAVID; YELENAP; YELENAC; KAYLEIGH
--- NOTE | 2023-02-24 15:33 | Conscious Sedation/ASA ---
02/24/23 1533: Moderate Sedation PreProcedure ASA Score Airway Lungs Heart ASA score ASA 1: a normal healthy patient ASA 2: a patient with a mild systemic disease (mid diabetes, controlled hypertension, obesity ASA 3: a patient with a severe systemic disease that limits activity (angina, COPD, prior Myocardial infarction) ASA 4: a patient with an incapacitating disease that is a constant threat to life (CHF, renal failure) ASA 5: a moribund patient not expected to survive 24 hrs. (ruptured aneurysm) ASA 6: a declared brain- patient whose organs are being harvested. For emergent operations, add the letter E after the classification Sedation Plan The patient is an appropriate candidate to undergo the planned procedure, sedation, and anesthesia. The patient immediately re-assessed prior to indication. SAIRA PABLO MD [facility] 02/24/23 1921: Moderate Sedation PreProcedure ASA Score 3 Mallampati Classification Grade 2 Sedation Plan Analgesia, Amnesia, Plan communicated to team members RENANFeb 24, 2023 15:33 SAIRA PABLO MD [facility] Feb 24, 2023 19:21
== END 2023-02-04 16:10 | disposition home or self-care (01) ==
LOC: CATH 10:02 → SDC 13:41 → CATH 16:10
PROVIDERS: ATTEND Internal Medicine Cardiovascular Disease
DX: Z45.010 Encounter for checking and testing of cardiac pacemaker pulse generator [battery] (principal); I49.5 Sick sinus syndrome; I25.10 Atherosclerotic heart disease of native coronary artery without angina pectoris; I10 Essential (primary) hypertension; I48.91 Unspecified atrial fibrillation; I49.8 Other specified cardiac arrhythmias; I71.21 Aneurysm of the ascending aorta, without rupture; I35.1 Nonrheumatic aortic (valve) insufficiency; I65.23 Occlusion and stenosis of bilateral carotid arteries; R06.02 Shortness of breath; G89.29 Other chronic pain; M25.562 Pain in left knee; M79.89 Other specified soft tissue disorders; G25.2 Other specified forms of tremor; E87.6 Hypokalemia; R73.03 Prediabetes; R49.0 Dysphonia; R94.31 Abnormal electrocardiogram [ECG] [EKG]; R31.9 Hematuria, unspecified; R76.0 Raised antibody titer; R93.1 Abnormal findings on diagnostic imaging of heart and coronary circulation; Z86.16 Personal history of COVID-19; Z86.73 Personal history of transient ischemic attack (TIA), and cerebral infarction without residual deficits; Z79.01 Long term (current) use of anticoagulants
CPT/HCPCS: 33227; 71045; 80053; 80061; 85027; 85610; 85730; 87081; 93005; C1786; 36415

== ENCOUNTER → 2023-02-21 | Outpatient (CLI) | payer MEDICARE, BC ==
[~2023-02-21] MED LIST changes: +ACET-2650 PO; +CEFU500T63 PO; +FERR325T18 PO; +FLUC150T41 PO; +GABA-486 PO; +OMEG100032 PO; +REGADENOSON 0.4 MG/5 ML SYR (LEXISCAN) IV ONE; +TRAM50TA3 PO
[2023-02-21] MEDS: CATHETER FLUSH 10 ML SYR IVP PRN ×2 (08:20→09:24)
[2023-02-21 09:21] VITALS: BP 136/63
--- NOTE | 2023-02-22 22:11 | STRESS TEST ---
DATE OF SERVICE: 02/21/2023 RESTING AND POST REGADENOSON TECHNETIUM-99M TETROFOSMIN SPECT CT IMAGING ORDERING PHYSICIAN: Dr. Bustos. PRIMARY PHYSICIAN: Myriam Campos APRN. CLINICAL DIAGNOSIS: Shortness of breath. Baseline images were carried out after injection of 10.99 mCi of technetium-99m tetrofosmin. This was followed by 0.4 mg regadenoson and 31 mCi of technetium-99m tetrofosmin for stress imaging. The electrocardiogram showed a paced ventricular rhythm throughout the study. Intermittently, yurok complexes were also seen. The patient tolerated the procedure well. Review of images at rest and following stress does not indicate any perfusion defects consistent with myocardial ischemia or infarction. Gated images show normal global left ventricular systolic function with normal regional wall motion. Left ventricular ejection fraction is calculated to be 59%. CONCLUSIONS: 1. No evidence of any significant myocardial ischemia or infarction on the study. 2. Normal regional wall motions. 3. Normal global left ventricular systolic function with a calculated ejection fraction of 59%. Job ID: [id number] DocumentID: [id number] Dictated Date: 02/22/2023 17:22:13 Area Counselor Date: 02/22/2023 22:10:00 Dictated By: SAIRA BUSTOS MD; DAVID; FACP; FACC;
== END ==
LOC: CARD 08:00
PROVIDERS: ATTEND Internal Medicine Cardiovascular Disease
DX: R06.09 Other forms of dyspnea (principal)
CPT/HCPCS: 78452; 93017; A9502

== ENCOUNTER 2023-06-18 14:13 | Outpatient (RCR) | payer MEDICARE, BC ==
[~2023-06-18 14:13] MED LIST changes: +POTA-330 PO; -POTA-51 PO; -REGADENOSON 0.4 MG/5 ML SYR (LEXISCAN) IV ONE
== END 2023-06-21 | disposition home or self-care (01) ==
PROVIDERS: ATTEND Nurse Practitioner
DX: M70.61 Trochanteric bursitis, right hip (principal)

== ENCOUNTER 2023-07-21 10:24 | Outpatient (RCR) | payer MEDICARE, BC | END 2023-07-22 | disposition home or self-care (01) | PROVIDERS: ATTEND Nurse Practitioner | DX: M70.61 Trochanteric bursitis, right hip (principal); I10 Essential (primary) hypertension ==

== ENCOUNTER 2023-08-18 08:30 | Outpatient (RCR) | payer MEDICARE, BC | END 2023-08-20 09:38 | disposition home or self-care (01) | PROVIDERS: ATTEND Nurse Practitioner | DX: M70.61 Trochanteric bursitis, right hip (principal); I10 Essential (primary) hypertension ==